=== PATIENT | female | born 1985 | race Caucasian/White ===

== ENCOUNTER → 2021-02-17 11:26 | Outpatient (BNVA) | payer OTHER, SELFPAY | PROVIDERS: Family Provider Nurse Practitioner Family; Visit Provider Nurse Practitioner Family | DX: Z20.822 Contact with and (suspected) exposure to COVID-19 (principal); J06.9 Acute upper respiratory infection, unspecified | CPT/HCPCS: 87635 ==

== ENCOUNTER → 2022-06-29 16:02 | Outpatient (BNVA) | payer SELFPAY | PROVIDERS: Family Provider Nurse Practitioner Family; Visit Provider Nurse Practitioner Psychiatric/Mental Health | DX: Z79.899 Other long term (current) drug therapy (principal); F34.0 Cyclothymic disorder; F43.12 Post-traumatic stress disorder, chronic; F17.210 Nicotine dependence, cigarettes, uncomplicated | CPT/HCPCS: 80053; 80061; 83036 ==

== ENCOUNTER 2024-09-27 12:58 | Inpatient (IN) | payer SELFPAY ==
[2024-09-27 13:40] VITALS: BP 101/62; PULSE 108; RESP 20; TEMP 38.9; O2SAT 99; BMI 25.2
[2024-09-27 13:54] LABS: Basophils % 0.2 %; Eosinophils % 0.1 %; Hematocrit 38.6 % (36-47); Lymphocytes # 1.1 10^3/uL (0.8-4.8); Lymphocytes % 7.5 %; Mean Corpuscular HGB Conc 30.3 g/dL (30-55); Mean Corpuscular Volume 82.5 fl (85-98); Mean Platelet Volume 10.5 fL (7.4-10.4); Monocytes # 0.9 10^3/uL (0.2-0.9); Neutrophils # 12.63 10^3/uL (1.8-7.7); Neutrophils % 85.8 %; Nucleated Red Blood Cells % 0 %; Platelet Count 326 10^3/cmm (157-399); Red Blood Count 4.68 10^6/uL (3.85-5.65); Red Cell Distribution Width 15.6 % (12.1-15.1); White Blood Count 14.73 10^3/uL (3.29-11.43)
--- NOTE | 2024-09-27 13:58 | ED_ITS ---
HPI - Abdominal Pain 2 General: Chief Complaint: Abdominal Pain Stated Complaint: abd pain/fever Time Seen by Provider: 09/27/24 13:58 History of Present Illness: 39-year-old female presents emergency ro om complaining of left-sided pelvic pain and a fever. She denies any discharge dysuria frequency hematuria. She denies any vaginal discharge or bleeding. She previously has had a tubal ligation. She has had symptoms off and on for weeks but much worse over the last 24 hours. Associated Symptoms: Denies chills, dysuria and fever(s) Related Data Home Medications ?Medication ?Instructions ?Recorded ?Confirmed multivitamin 1 tab PO DAILY 09/27/2409/03 Previous Rx's ?Medication ?Instructions ?Recorded carisoprodol 250 mg tablet (Soma) 250 mg PO TID PRN mu scle pain #14 09/27/24 tabs tramadol 50 mg tablet 50 mg PO Q8H PRN Abd pain #2 0 tabs 09/27/24 Allergies Allergy/AdvReac Type Severity Reaction Status Date / Time amoxicillin Allergy ALGY-Anaphy Verified 09/27/24 13:44 laxis Sulfa (Sulfonamide Allergy ALGY-Anaphy Verified 09/27/24 13:44 Antibiotics) laxis Review of Systems 2 Const: Denies: fever(s) or chills Card: Denies: chest pain Resp: Denies: dyspnea GI: Denies: abdominal pain : Denies: dysuria, urinary frequency or urinary urgency Musc: Denies: neck pain or back pain Skin/Breast: Denies: rash PFSH ED 2 PFSH: Medical History Strain of rectus abdominis muscle Chronic post-traumatic stress disorder Nicotine dependence, cigarettes, uncomplicated Cyclothymic disorder with anxious distress Social History Smoking and tobacco/nicotine status: current every day tobacco/nicotine user Quit status (tobacco/nicotine): not considering quitting Alcohol intake: current Substance/Drug Use: never Physical Exam 2 Const: COMMON NORMALS: no acute distress GENERAL APPEARANCE: cooperative and comfortable ORIENTATION/CONSCIOUSNESS: Yes awake, Yes oriented to person, Yes oriented to place and Yes oriented to time HENMT: COMMON NORMALS: normocephalic, atraumatic and hearing grossly normal bilaterally HEAD & SCALP: normocephalic and atraumatic Resp: COMMON NORMALS: normal respiratory effort, No retractions, No use of accessory muscles and clear to auscultation bilaterally AUSCULTATION: clear to auscultation bilaterally Cardio: COMMON NORMALS: regular rate, regular rhythm and No murmurs present (Cardio) RATE: regular rate RHYTHM: regular rhythm GI: COMMON NORMALS: No hepatosplenomegaly present AUSCULTATION: Yes normoactive bowel sounds PALPATION: Yes Tenderness to palpation present (GI) Details: LLQ, No Guarding due to palpation present (GI) and Yes No hepatosplenomegaly present Extremity: COMMON NORMALS: normal to inspection, capillary refill normal, no clubbing, cyanosis or edema, no calf tenderness and no pedal edema Neuro: SENSORIUM/ORIENTATION: Yes oriented to person, Yes oriented to place and Yes oriented to time Skin: COMMON NORMALS: no rashes or lesions noted GENERAL SKIN EXAM: no rashes or lesions noted Course 2 Vital Signs: Vital signs: Vital Signs Temperature 98.5 F 09/28/24 04:23 Pulse Rate 92 09/28/24 04:23 Respiratory Rate 18 09/28/24 04:23 Blood Pressure 112/64 09/28/24 04:23 Pulse Oximetry 96 09/28/24 04:23 Oxygen Delivery Me thod Room Air 09/28/24 04:23 MDM - Abdominal Pain Medical Decision Making Patient arrived with a fever. She has significant enlargement in the left ovary on CT they recommended ultrasound. Ultrasound shows poor blood flow to areas of edema with suggestive of torsion which has been going on off and on for a week and had developed severe pain in the last 12 hours. She denies any vaginal discharge. GC and Chlamydia were run. Empirically start doxycycline and metronidazole. Discussed Dr. Fall orders written he will see the patient. Differential Diagnosis Likely abdominal pain, calculus of kidney, constipation, diverticulitis, endometriosis and small bowel obstruction Medical Records I reviewed the patient's medical records. Lab Data I reviewed the patient's lab results. 09/27/24 13:33 09/27/24 13:33 Labs/Radiology: Radiology Impressions Abdomen/Pelvis CT 09/27/24 14:16 IMPRESSION: 1. Large left ovary. Ultrasound recommended. 2. Moderate free pelvic fluid. Chest X-Ray 09/27/24 14:18 Impression: Negative chest. Pelvic/Transvag US 09/27/24 15:39 IMPRESSION: Enlarged, edematous left ovary with scant to no flow seen within the edematous portions of the ovary which raises concern for ovarian torsion. THIS REPORT CONTAINS FINDINGS THAT MAY BE CRITICAL TO PATIENT CARE. The findings were verbally communicated via telephone conference with MARIO GREENBERG at 5:32 PM FERMENTING CELLARS RECEIVER on 09/27/2024. The findings were acknowledged and understood. Laboratory Results WBC 14.73 10^3/uL (3.29-11.43) H 09/27/24 13:33 RBC 4.68 10^6/uL (3.85-5.65) 09/27/24 13:33 Hgb 11.70 g/dL (11.27-16.99) 09/27/24 13:33 Hct 38.6 % (36-47) 09/27/24 13:33 MCV 82.5 fl (85-98) L 09/27/24 13:33 MCH 25.0 pg (27-33) L 09/27/24 13:33 MCHC 30.3 g/dL (30-55) 09/27/24 13:33 RDW 15.6 % (12.1-15.1) H 09/27/24 13:33 Plt Count 326 10^3/cmm (157-399) 09/27/24 13:33 MPV 10.5 fL (7.4-10.4) H 09/27/24 13:33 Neut % (Auto) 85.8 % 09/27/24 13:33 Lymph % (Auto) 7.5 % 09/27/24 13:33 [place] % (Auto) 6.0 % 09/27/24 13:33 Eos % (Auto) 0.1 % 09/27/24 13:33 Baso % (Auto) 0.2 % 09/27/24 13:33 Neut # (Auto) 12.63 10^3/uL (1.8-7.7) H 09/27/24 13:33 Lymph # (Auto) 1.1 10^3/uL (0.8-4.8) 09/27/24 13:33 [place] # (Auto) 0.9 10^3/uL (0.2-0.9) 09/27/24 13:33 Eos # (Auto) 0.0 10^3/uL (0.0-0.8) 09/27/24 13:33 Baso # (Auto) 0.0 10^3/uL (0.0-0.1) 09/27/24 13:33 Nucleated RBC % (auto) 0 % 09/27/24 13:33 Nucleated RBCs # 0.0 /100WBC 09/27/24 13:33 Sodium 135 mmol/L (136-145) L 09/27/24 13:33 Potassium 3.4 mmol/L (3.5-5.1) L 09/27/24 13:33 Chloride 101 mmol/L (98-107) 09/27/24 13:33 Carbon Dioxide 21 mmol/L (22-29) L 09/27/24 13:33 Anion Gap 16.4 (5-19) 09/27/24 13:33 BUN 6 mg/dL (6-20) 09/27/24 13:33 Creatinine 0.5 mg/dL (0.5-0.9) 09/27/24 13:33 GFR Calculation 138.1 mL/min (90-130) H 09/27/24 13:33 Glucose 117 mg/dL (65-115) H 09/27/24 13:33 Calculated Osmolality 279 mOsm/kg (285-295) L 09/27/24 13:33 Lactic Acid 0.8 mmol/L (0.5-2.2) 09/27/24 16:55 Calcium 9.2 mg/dL (8.5-10.5) 09/27/24 13:33 Total Bilirubin 0.8 mg/dL (0.15-1.2) 09/27/24 13:33 AST 24 U/L (0-32) 09/27/24 13:33 ALT 30 U/L (0-33) 09/27/24 13:33 Alkaline Phosphatase 107 U/L (35-105) H 09/27/24 13:33 Total Protein 6.8 g/dL (6.6-8.7) 09/27/24 13:33 Albumin 3.6 g/dL (3.5-5.2) 09/27/24 13:33 Globulin 3.2 g/dL (1.3-4.6) 09/27/24 13:33 Lipase 23 U/L (13-60) 09/27/24 13:33 HCG, Qual Negative (Negative) 09/27/24 13:33 Urine Color [place] (Yellow) A 09/27/24 14:19 Urine Appearance Turbid (CLEAR) A 09/27/24 14:19 Urine pH 6.5 (5-7) 09/27/24 14:19 Ur Specific [place] 1.024 (1.005-1.030) 09/27/24 14:19 Urine Protein 1+ (Negative) A 09/27/24 14:19 Urine Glucose (UA) Negative (Normal) 09/27/24 14:19 Urine Ketones 1+ (Negative) H 09/27/24 14:19 Urine Blood Negative (Negative) 09/27/24 14:19 Urine Nitrate Negative (Negative) 09/27/24 14:19 Urine Bilirubin 1+ (Negative) H 09/27/24 14:19 Urine Urobilinogen 2.0 mg/dL (Negative) H 09/27/24 14:19 Ur Leukocyte Esterase 1+ (Negative) A 09/27/24 14:19 Urine RBC 0-4 /hpf (0-2) H 09/27/24 14:19 Urine WBC 0-4 /hpf (0-5) H 09/27/24 14:19 Ur Squamous Epith Cells 0-4 /hpf (0-5) H 09/27/24 14:19 Amorphous Sediment Not Reportable 09/27/24 14:19 Urine Bacteria 3+ /hpf (NONE) H 09/27/24 14:19 Hyaline Casts 0-4 /lpf H 09/27/24 14:19 C. trachomatis (PCR) Not detected 09/27/24 14:19 Influenza A (PCR) Negative (Negative) 09/27/24 14:28 Influenza Type B (PCR) Negative (Negative) 09/27/24 14:28 N. gonorrhoeae (PCR) Not detected 09/27/24 14:19 RSV (PCR) Negative (Negative) 09/27/24 14:28 SARS-CoV-2 (PCR) Negative (Negative) 09/27/24 14:28 T. vaginalis (PCR) Not detected 09/27/24 14:19 All radiology interpretation(s) finalized by discharge Discharge Plan Discharge Patient Disposition: Admitted As Inpatient Admit Provider: Toby Fall Clinical Impression: Torsion of left ovary, Fever Condition: Stable Coding Level of Care Code ED Wheat Cleaner for Khoa Stevens
--- NOTE | 2024-09-27 14:01 | PC.PHAR ---
Patient was seen in Urgent care 09/27/24 earlier and stated she wasn't aware that they prescribed the Soma or the Tramadol , so she hadn't picked it up yet .
[2024-09-27 14:03] LABS: HCG, Serum Qual Negative (Negative)
[2024-09-27 14:13] LABS: Alanine Aminotransferase 30 U/L (0-33); Albumin Level 3.6 g/dL (3.5-5.2); Alkaline Phosphatase 107 U/L (35-105); Anion Gap 16.4 (5-19); Aspartate Amino Transferase 24 U/L (0-32); Blood Urea Nitrogen 6 mg/dL (6-20); Calcium 9.2 mg/dL (8.5-10.5); Carbon Dioxide 21 mmol/L (22-29); Chloride 101 mmol/L (98-107); Globulin 3.2 g/dL (1.3-4.6); Glomerular Filtration Rate 138.1 mL/min (90-130); Glucose 117 mg/dL (65-115); Lipase 23 U/L (13-60); Osmolality Calculated 279 mOsm/kg (285-295); Potassium 3.4 mmol/L (3.5-5.1); Sodium 135 mmol/L (136-145); Total Bilirubin 0.8 mg/dL (0.15-1.2); Total Protein 6.8 g/dL (6.6-8.7)
--- NOTE | 2024-09-27 14:16 | CTR_ITS ---
PROCEDURE INFORMATION: Exam: CT Abdomen And Pelvis Without Contrast Exam date and time: 09/27/2024 2:31 PM Age: 39 years old Clinical indication: Abdominal pain; Flank; Left; Additional info: Flank pain TECHNIQUE: Imaging protocol: Computed tomography of the abdomen and pelvis without contrast. Radiation optimization: All CT scans at this facility use at least one of these dose optimization techniques: automated exposure control; mA and/or kV adjustment per patient size (includes targeted exams where dose is matched to clinical indication); or iterative reconstruction. COMPARISON: No relevant prior studies available. RADIATION DOSE METRICS: Total DLP (mGy-cm): 402.23 FINDINGS: Liver: Normal. No mass. Gallbladder and biliary ducts: Normal. No calcified stones. No ductal dilation. Pancreas: Normal. No ductal dilation. Spleen: 14 cm splenomegaly. Adrenal glands: Normal. No mass. Kidneys and ureters: Faint nephrocalcinosis. Nonobstructing bilateral lower pole renal calculus. Stomach and bowel: Unremarkable. No obstruction. No mucosal thickening. Appendix: No evidence of appendicitis. Intraperitoneal space: Moderate volume free fluid within the pelvis. Vasculature: Unremarkable. No abdominal aortic aneurysm. Lymph nodes: Unremarkable. No enlarged lymph nodes. Urinary bladder: Unremarkable as visualized. Reproductive: 6.7 cm mass in the left adnexa probably representing a large left ovary. There is a small amount of adjacent free fluid. Ultrasound is recommended for further evaluation. Bones/joints: Unremarkable. No acute fracture. Soft tissues: Unremarkable. CT/CT kidney stone [id number] IMPRESSION: 1. Large left ovary. Ultrasound recommended. 2. Moderate free pelvic fluid.
--- NOTE | 2024-09-27 14:18 | XR_ITS ---
WS: [id number] Portable AP upright chest, 09/27/2024 Clinical Data: dyspnea/cough Comparison: None. Findings: No nodules, masses or effusions are seen. The heart is normal. The pulmonary vascularity is not increased. No pneumonia or pneumothorax is seen. XR/XR chest 1V portable [id number] Impression: Negative chest.
[2024-09-27 14:24] LABS: Slide Review Slide Review Perform
[2024-09-27 14:35] LABS: Bilirubin Urine 1+ (Negative); Blood Urine Negative (Negative); Glucose Urine UA Negative (Normal); Ketones Urine 1+ (Negative); Leukocyte Esterase Urine 1+ (Negative); Nitrate Urine Negative (Negative); Protein Urine 1+ (Negative); Specific Gravity, Urine 1.024 (1.005-1.030); Urine Appearance Turbid (CLEAR); pH Urine 6.5 (5-7)
--- NOTE | 2024-09-27 14:42 | ECG_ITS ---
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 Measurements Intervals [place] Rate: 95 P: 18 MI: 84 QRS: -46 QRSD: 120 T: 123 QT: 363 QTc: 457 Interpretive Statements SINUS RHYTHM WITH SHORT MI INTERVAL VENTRICULAR PREEXCITATION / WPW Compared to ECG 11/01/2015 04:58:13 No significant changes Electronically Signed On 09-30-2024 08:02:57 IRRIGATION DISTRICT MANAGER by Cuauhtemoc Zepeda M.D. [email or web address]
[2024-09-27 14:48] LABS: Add Urine Culture? Yes; Add Urine Microscopic? YES; Bacteria Urine 3+ /hpf; Hyaline Casts Urine 0-4 /lpf; RBC Urine 0-4 /hpf (0-2); Squamous Epithelial Cell Urine 0-4 /hpf (0-5); UA Manual Slide Review YES; UA Slide Review UA Slide Review Perf; Urine Color Orange (Yellow); WBC Urine 0-4 /hpf (0-5)
[2024-09-27 15:14] LABS: Influenza A NEGATIVE (Negative); Influenza B NEGATIVE (Negative); Respiratory Syncytial Virus Ce NEGATIVE (Negative); SARS-CoV-2 PCR NEGATIVE (Negative)
--- NOTE | 2024-09-27 15:39 | USR_ITS ---
PROCEDURE INFORMATION: Exam: US Pelvis, Complete, Non-Obstetric Exam date and time: 09/27/2024 4:16 PM Age: 39 years old Clinical indication: Pelvic pain; Additional info: L ovarian mass TECHNIQUE: Imaging protocol: Transabdominal pelvic nonobstetric ultrasound. Complete exam. Real time ultrasound with image documentation. COMPARISON: CT kidney stone [id number] 09/27/2024 2:31 PM FINDINGS: Uterus: Uterus is normal. Endometrial stripe measures 8 mm in thickness, within normal limits. Right ovary/adnexa: Ovary is normal. No mass. Ovarian follicle noted measuring 2 cm in size. Normal blood flow. Left ovary/adnexa: Left ovary is enlarged appears edematous with heterogeneous hypoechogenicity. The ovary measures 7.4 x 3.5 x 5.6 cm with an estimated ovarian volume of 75 cc. While some blood flow is detected within ovary, there appears to be scant or no flow seen within the hypoechogenic/edematous regions. Some smaller follicles are present within the left ovary measuring up to 2 cm in size, but no ovarian mass that would explain the ovarian enlargement. Intraperitoneal space: Small volume free fluid is noted within the pelvis. Urinary bladder: Normal. US/US pelvis lmt w transvag IMPRESSION: Enlarged, edematous left ovary with scant to no flow seen within the edematous portions of the ovary which raises concern for ovarian torsion. THIS REPORT CONTAINS FINDINGS THAT MAY BE CRITICAL TO PATIENT CARE. The findings were verbally communicated via telephone conference with SOLA GREENBERG at 5:32 PM ENTHONE SOLDER STRIPPER on 09/27/2024. The findings were acknowledged and understood.
[2024-09-27] MEDS: acetaminophen 325 mg Tablet 650 MG PO (16:58)
[2024-09-27 17:00] VITALS: TEMP 37.9
[2024-09-27 17:39] LABS: Lactic Sepsis W/Reflex 0.8 mmol/L (0.5-2.2)
[2024-09-27] MEDS: doxycycline 100 MG in sodium chloride 0.9% (plus) 100 ML IV (18:06)
[2024-09-27] MEDS: metroNIDAZOLE IV 500 MG/100 ML PREMIX 100 MG IV (18:07)
[2024-09-27] MEDS: morphine 4 mg/mL SDV 1 mL IVP (18:37)
[2024-09-27] MEDS: ketorolac 30 mg/mL INJ IVP (18:37)
[2024-09-27 18:42] VITALS: BP 112/61; PULSE 96; RESP 18; O2SAT 97
[2024-09-27 20:02] LABS: Trichomonas vaginalis (PCR) NOT DETECTED
[2024-09-27 20:07] VITALS: BP 104/50; PULSE 92; RESP 16; TEMP 36.9; O2SAT 97; BMI 25.1
[2024-09-27 20:26] LABS: Chlamydia Trachomatis NOT DETECTED; Neisseria Gonorrhea NOT DETECTED
[2024-09-27 20:44] VITALS: BP 104/50; PULSE 92; RESP 18; O2SAT 97
[2024-09-27] MEDS: D5-NS 0.45% + KCL 20 mEq 20 MEQ/1,000 ML BAG 125 MEQ IV (21:08)
[2024-09-27 23:58] VITALS: BP 96/57; PULSE 79; RESP 18; TEMP 36.7; O2SAT 98
[2024-09-28] VITALS (20 sets, daily range): BP systolic 86–114; BP diastolic 39–66; PULSE 77–100; RESP 15–24; TEMP 36.6–38.6; O2SAT 91–98
[2024-09-28] MEDS: morphine 4 mg/mL SDV 1 mL IVP ×3 (02:49→11:23)
[2024-09-28] MEDS: D5-NS 0.45% + KCL 20 mEq 20 MEQ/1,000 ML BAG 125 MEQ IV ×2 (04:58→11:26)
--- NOTE | 2024-09-28 10:52 | US_ITS ---
WS: [id number] US transvaginal [id number] HISTORY: examine ovaries for ovarian torsion COMPARISON: Ultrasound 09/27/2024, CT 09/27/2024 Uterus: 7.7 cm x 4.8 cm x 5.3 cm. Uterus is slightly retroflexed. Uterus is not as well visualized today due to its position compared to the study on 09/27/2024. Endometrium: 1.0 cm. Normal. Right ovary: 4.2 cm x 2.4 cm x 2.8 cm. Normal size and vascularity, no cystic or solid masses. Left ovary: 7.2 cm x 5.3 cm x 7.4 cm. Normal size and vascularity, no cystic or solid masses. LEFT ovary is difficult to see on today's ultrasound due to its high position within the LEFT pelvis. Ovary was better visualized on transabdominal imaging on the prior study. The ovary continues to be enlarged and edematous with cystic masses. Ovarian volume is 148 mL. There is systolic and diastolic velocity noted within the ovary but this is within the peripheral aspect of the ovary. Only small portion of the ovary has vascularity. Slight delayed uptake of the arterial flow. No reversal of flow. No free fluid in the cul-de-sac. US/US transvaginal [id number] IMPRESSION: 1. Significantly enlarged LEFT ovary with edema and follicles. LEFT ovary is s lightly elevated from the LEFT adnexa. Vascularity is only identified in a smal l portion of the ovary. Findings remain highly suspicious for at least a partia l ovarian torsion. 2. No free fluid in the cul-de-sac. 3. Notified Toby Fall MD at 09/28/2024 12:51 PM.
[2024-09-28] MEDS: metroNIDAZOLE IV 500 MG/100 ML PREMIX 100 MG IV (11:25)
[2024-09-28] MEDS: doxycycline 100 MG in sodium chloride 0.9% (plus) 100 ML IV (11:25)
--- NOTE | 2024-09-28 13:06 | W.PM.OPSFHP ---
Same Day Surgery H&P Indication for Procedure/HPI DATE OF PROCEDURE: September 28, 2024 CHIEF COMPLAINT/INDICATIONFOR SURGICAL PROCEDURE: Pelvic pain PREOP DIAGNOSIS: left ovarian torsion PLANNED PROCEDURE: Diagnostic laparoscopy Untoward ovary Possible oophorectomy 39-year-old female came to the emergency room with pelvic pain and fever. During the ER evaluation ultrasound was performed showing a large left ovary with decreased blood flow. Admitted for observation and antibiotics therapy and repeat ultrasound continue to show enlarged adenomatous ovary with diminished blood flow. Medications/Allergies* Home Medications ?Medication ?Instructions ?Recorded ?Confirmed ?Type multivitamin 1 tab PO DAILY 09/27/24 09/27/24 History Allergies/Adverse Reactions Allergy/AdvReac Type Severity Reaction Status Date / Time amoxicillin Allergy ALGY-Anaphy Verified 09/27/24 13:44 laxis Sulfa (Sulfonamide Allergy ALGY-Anaphy Verified 09/27/24 13:44 Antibiotics) laxis Current Medications: Generic Name Dose Route Start Last Admin Trade Name Freq PRN Reason Stop Dose Admin Potassium Chloride/Dextrose/Sod Cl 20 meq in 1,000 mls @ 125 mls/hr 09/27/24 19:58 09/28/24 12:18 D5-Ns 0.45% + Kcl 20 Meq IV 125 mls/hr .Q8H WALKER Infusion Doxycycline Hyclate 100 mg/ 100 mls @ 100 mls/hr 09/28/24 12:00 09/28/24 12:18 Sodium Chloride IV 10 mls/hr Q12H WALKER Infusion Protocol Metronidazole 500 mg in 100 mls @ 100 mls/hr 09/28/24 12:00 09/28/24 12:18 Flagyl Iv IV 100 mls/hr Q8H WALKER Infusion Protocol Morphine Sulfate 4 mg 09/27/24 19:58 09/28/24 11:23 Morphine 4 Mg/Ml Sdv 1 Ml IVP 4 mg Q4H PRN Administration SEVERE PAIN Pertinent History/Comorbid Conditions* Medical History (Updated 09/28/24 @ 06:44 by Mario Thakur DO) Strain of rectus abdominis muscle Chronic post-traumatic stress disorder Nicotine dependence, cigarettes, uncomplicated Cyclothymic disorder with anxious distress Social History Smoking and tobacco/nicotine status: current every day tobacco/nicotine user Quit status (tobacco/nicotine): not considering quitting Alcohol intake: current Substance/Drug Use: never Pertinent Exam Findings alert, oriented x 3, regular rate & rhythm and procedure specific exam findings (Left lower abdominal tenderness) Recommendations Surgery/Procedure today (Diagnostic laparoscopy, ovarian untorsion) Coding Level of Care Code Acute Code for Chg Fwd
[2024-09-28] MEDS: sodium chloride 0.9% 1,000 ML 30 ML IV (13:35)
[2024-09-28] MEDS: scopolamine 1 mg PATCH 1 PATCH TRANSDERMA (13:35)
--- NOTE | 2024-09-28 14:02 | P.ANESASSM_ITS ---
Pre-Anesthetic Assessment Height/Weight: Height 1.65 m Weight 68.492 kg Temp Pulse Resp BP Pulse Ox O2 Del Method 101.5 F H 100 18 114/63 96 Room Air 09/28/24 13:28 09/28/24 13:28 09/28/24 13:28 09/28/24 13:28 09/28/24 13:28 09/28/24 13:28 Preop Diagnosis: left ovarian torsion Operation Date: 09/28/24 13:30 Proposed Procedures p Laparoscopic Salpingo Oophorectomy(Not Applicable) - Toby Fall MD Familial anesthetic complications: none Was Beta Veronica taken within 24 hours: N/A Was Clonidine taken within 24 hours: N/A Last intake: Intake Last Liquid Date 09/27/24 Last Liquid Time 20:18 Last Solid Date 09/24/24 Last Solid Time 20:00 Social Tobacco Meth use 7 days ago Exam alert, oriented x 3, clear to auscultation bilaterally and regular rate & rhythm Airway Mallampati: Class II Dentition: chipped Comments: Comments: poor dentition, multiple missing upper and lower CV/HEM EKG shows WPW, Q waves in II, III, and AVF, history of meth abuse does not see cardiology, >4mets, last used 7 days ago. None reported Hepatic None reported GI None reported N/V attributed to current diagnosis. Metabolic None reported Musc/skel None reported Neuropsych Anxiety, Bipolar and Depression Anesthetic Plan ASA status: 3 Anesthesia: General Risk of > 500 ml blood loss (7ml/kg in children): No Medications/Allergies Home Medications ?Medication ?Instructions ?Recorded ?Confirmed ?Last Taken ?Type carisoprodol 250 mg tablet (Soma) 250 mg PO TID PRN mu scle pain #14 09/27/24 09/27/24 Unknown Rx tabs multivitamin 1 tab PO DAILY 09/27/24 02/2 01/2409/23/24 History tramadol 50 mg tablet 50 mg PO Q8H PRN Abd pain #2 0 tabs 09/27/24 09/27/24 Unknown Rx Allergies Allergy/AdvReac Type Severity Reaction Status Date / Time amoxicillin Allergy ALGY-Anaphy Verified 09/27/24 13:44 laxis Sulfa (Sulfonamide Allergy ALGY-Anaphy Verified 09/27/24 13:44 Antibiotics) laxis Current Medications Generic Name Dose Route Start Last Admin Trade Name Freq PRN Reason Stop Dose Admin Potassium Chloride/Dextrose/Sod Cl 20 meq in 1,000 mls @ 125 mls/hr 09/27/24 19:58 09/28/24 12:18 D5-Ns 0.45% + Kcl 20 Meq IV 125 mls/hr .Q8H WALKER Infusion Doxycycline Hyclate 100 mg/ 100 mls @ 100 mls/hr 09/28/24 12:00 09/28/24 12:18 Sodium Chloride IV 10 mls/hr Q12H WALKER Infusion Protocol Metronidazole 500 mg in 100 mls @ 100 mls/hr 09/28/24 12:00 09/28/24 13:10 Flagyl Iv IV Infused Q8H WALKER Infusion Protocol Sodium Chloride 1,000 mls @ 30 mls/hr 09/28/24 13:30 09/28/24 13:35 Sodium Chloride 0.9% IV 09/29/24 13:29 30 mls/hr .Q24H WALKER Administration Morphine Sulfate 4 mg 09/27/24 19:58 09/28/24 11:23 Morphine 4 Mg/Ml Sdv 1 Ml IVP 4 mg Q4H PRN Administration SEVERE PAIN PFSH Anesthesia Medical History Strain of rectus abdominis muscle Chronic post-traumatic stress disorder Nicotine dependence, cigarettes, uncomplicated Cyclothymic disorder with anxious distress Social History Smoking and tobacco/nicotine status: current every day tobacco/nicotine user Quit status (tobacco/nicotine): not considering quitting Alcohol intake: current Substance/Drug Use: never Data Anesthesia 09/27/24 13:33 09/27/24 13:33 Short CBC 09/27/24 Range/Units 13:33 WBC 14.73 H (3.29-11.43) 10^3/uL Hgb 11.70 (11.27-16.99) g/dL Hct 38.6 (36-47) % MCV 82.5 L (85-98) fl Plt Count 326 (157-399) 10^3/cmm Neut % (Auto) 85.8 % Neut # (Auto) 12.63 H (1.8-7.7) 10^3/uL BMP 09/27/24 13:33 Sodium 135 L Potassium 3.4 L Chloride 101 Carbon Dioxide 21 L BUN 6 Creatinine 0.5 Glucose 117 H Calcium 9.2 Liver Function 09/27/24 Range/Units 13:33 Total Bilirubin 0.8 (0.15-1.2) mg/dL AST 24 (0-32) U/L ALT 30 (0-33) U/L Alkaline Phosphatase 107 H (35-105) U/L Albumin 3.6 (3.5-5.2) g/dL Urine 09/27/24 Range/Units 14:19 Urine Color [place] A (Yellow) Urine Appearance Turbid A (CLEAR) Urine pH 6.5 (5-7) Ur Specific [place] 1.024 (1.005-1.030) Urine Protein 1+ A (Negative) Urine Glucose (UA) Negative (Normal) Urine Ketones 1+ H (Negative) Urine Nitrate Negative (Negative) Urine Bilirubin 1+ H (Negative) Ur Leukocyte Esterase 1+ A (Negative) Urine RBC 0-4 H (0-2) /hpf Urine WBC 0-4 H (0-5) /hpf COVID Results 09/27/24 14:28 SARS-CoV-2 (PCR) Negative Microbiology 09/27/24 14:19 Urine Culture - Preliminary Urine,Clean Catch Gram Negative Rods 09/27/24 16:58 Blood Culture - Preliminary Blood SPECIMEN COLLECTED 09/27/24 16:55 Blood Culture - Preliminary Blood SPECIMEN COLLECTED Cardiac Studies: 2 No Data to Display
[2024-09-28] MEDS: BUPivacaine 0.5% INJ 10 mL INJECTION (14:30)
--- NOTE | 2024-09-28 14:42 | P.OP_ITS ---
Operative Report Date of procedure: September 28, 2024 Pre-op diagnosis: Pelvic pain Left ovarian torsion Post-op diagnosis: Same as above Extensive pelvic adhesions Procedure done: Diagnostic laparoscopy Surgeon: Toby Fall MD Estimated blood loss (mL): 5 Complications: none Findings: extensive lower anterior abdominal wall adhesions, in volving the uterus, omemtun, left adnexa. Procedure: After informed consent, the patient was taken to the operating room where general anesthesia was administered. The patient was examined under anesthesia and found to have a normal uterus with normal adnexa. She was placed in the dorsal lithotomy position and prepped and draped in sterile fashion. Pre- Procedure Time-Out verifying the correct patient identity, correct procedure verified with consent, correct site and side, correct patient position, availability of correct implants and any special equipment or requirements was performed and acknowledge by the OR team. A weighted speculum was placed in the vagina, and the anterior lip of cervix was grasped with the single toothed tenaculum. A uterine manipulator was advanced into the endocervical. Tenaculum was removed after uterine manipulator was secured. The speculum was removed from the vagina. An intraumbilical incision was made with a scalpel. While tenting up on the abdomen, a Verres needle with sleeve was admitted into the intra-abdominal cavity. A saline drop test was performed and noted to be within normal limits. Pneumoperitoneum was attained with 4 liters of carbon dioxide. The Verres needle was removed. A 5 mm trocar and sleeve were admitted into the abdomen and laparoscopic confirmation of location was achieved, A second incision was not inserted due to extensive adhesion to anterior abdopminal wall. A survey revealed extensive anterior abdominal wall adhesions involving the uterus, omentum and large intestine. The patient will be counseled regarding findings and recommended exploratory laparotomy with possible hysterectomy. Right ovary was normal. Carbon dioxide was allowed to escape from the abdomen. The instruments were removed, and skin cover with a bandage. The instruments were removed from the vagina, and excellent hemostasis was noted. The patient tolerated the procedure well, and sponge, lap and needle count were correct times two. The patient taken to the recovery room in good condition.
--- NOTE | 2024-09-28 15:25 | ANE.PACU2 ---
Inpatient post-anesthesia follow up: Airway intact: Yes Vital signs: Temperature 97.9 F Pulse Rate 88 Respiratory Rate 15 Blood Pressure 86/52 Pulse Oximetry 96 Oxygen Delivery Me thod Room Air Oxygen Flow Rate 8 Fraction of Inspir ed Oxygen Hydration adequate: Yes Nausea and vomiting: No Pain level: 1 Mental status: Baseline
[2024-09-28 15:31] LABS: OR HCG Qualitative Urine Negative (Negative)
[2024-09-28] MEDS: HYDROcodone-acetaminophen 5-325 mg Tablet PO (15:50)
[2024-09-28] MEDS: ketorolac 30 mg/mL INJ IVP ×2 (15:50→21:38)
[2024-09-28] MEDS: dextrose 5%-lactated ringers 1,000 ML 125 ML IV ×2 (15:51→23:42)
[2024-09-28 18:01] LABS: Basophils % 0.2 %; Eosinophils % 0.2 %; Hematocrit 31.8 % (36-47); Lymphocytes # 0.8 10^3/uL (0.8-4.8); Lymphocytes % 6.1 %; Mean Corpuscular HGB Conc 31.1 g/dL (30-55); Mean Corpuscular Hemoglobin 25.2 pg (27-33); Mean Corpuscular Volume 80.9 fl (85-98); Mean Platelet Volume 10.7 fL (7.4-10.4); Monocytes # 0.2 10^3/uL (0.2-0.9); Monocytes % 1.9 %; Neutrophils % 90.5 %; Nucleated Red Blood Cells % 0 %; Platelet Count 268 10^3/cmm (157-399); Red Blood Count 3.93 10^6/uL (3.85-5.65); Red Cell Distribution Width 15.4 % (12.1-15.1)
[2024-09-28 18:25] LABS: Alanine Aminotransferase 24 U/L (0-33); Albumin Level 2.9 g/dL (3.5-5.2); Alkaline Phosphatase 93 U/L (35-105); Blood Urea Nitrogen 8 mg/dL (6-20); Calcium 8.5 mg/dL (8.5-10.5); Carbon Dioxide 24 mmol/L (22-29); Chloride 105 mmol/L (98-107); Creatinine Clr Calc Pharmacy 148.3456; Globulin 2.8 g/dL (1.3-4.6); Glomerular Filtration Rate 138.1 mL/min (90-130); Glucose 207 mg/dL (65-115); Osmolality Calculated 288 mOsm/kg (285-295); Sodium 137 mmol/L (136-145); Total Bilirubin 0.5 mg/dL (0.15-1.2); Total Protein 5.7 g/dL (6.6-8.7)
[2024-09-28 18:28] LABS: Anion Gap 12.3 (5-19); Aspartate Amino Transferase 29 U/L (0-32); Potassium 4.3 mmol/L (3.5-5.1)
[2024-09-28 23:56] LABS: Bilirubin Urine Negative (Negative); Blood Urine Negative (Negative); Glucose Urine UA Negative (Normal); Ketones Urine Trace (Negative); Leukocyte Esterase Urine 1+ (Negative); Nitrate Urine Negative (Negative); Protein Urine 1+ (Negative); Specific Gravity, Urine 1.021 (1.005-1.030); Urine Appearance Clear (CLEAR); Urine Color Dark Yellow (Yellow); pH Urine 6.5 (5-7)
[2024-09-29] VITALS: BP 94/53; PULSE 66; RESP 16; TEMP 36.4; O2SAT 97
[2024-09-29 00:16] LABS: Add Urine Microscopic? YES; RBC Urine 0-4 /hpf (0-2); Squamous Epithelial Cell Urine 15-25 /hpf (0-5)
[2024-09-29 04:00] VITALS: BP 99/53; PULSE 65; RESP 14; TEMP 36.6; O2SAT 96
[2024-09-29] MEDS: ketorolac 30 mg/mL INJ IVP ×2 (04:00→10:09)
[2024-09-29 06:00] VITALS: BMI 26.8
[2024-09-29 08:26] VITALS: BP 92/58; PULSE 66; RESP 16; TEMP 36.3; O2SAT 93
[2024-09-29] MEDS: multivitamin therapeutic Tablet 1 TAB PO (10:09)
[2024-09-29] MEDS: dextrose 5%-lactated ringers 1,000 ML 125 ML IV (10:09)
[2024-09-29] MEDS: docusate sodium 100 mg Capsule PO (10:09)
[2024-09-29] MEDS: HYDROcodone-acetaminophen 5-325 mg Tablet PO (10:09)
[2024-09-29 11:35] LABS: Hematocrit 31.6 % (36-47); Mean Corpuscular Hemoglobin 25.5 pg (27-33); Mean Corpuscular Volume 82.3 fl (85-98); Mean Platelet Volume 10.6 fL (7.4-10.4); Platelet Count 377 10^3/cmm (157-399); Red Blood Count 3.84 10^6/uL (3.85-5.65); Red Cell Distribution Width 15.4 % (12.1-15.1); White Blood Count 19.57 10^3/uL (3.29-11.43)
[2024-09-29 12:02] VITALS: BP 100/58; PULSE 87; RESP 16; TEMP 36.4; O2SAT 99
--- NOTE | 2024-09-29 12:54 | P.HP_ITS ---
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 Initial CT scan and ultrasound show a left ovarian mass with decreased blood flow subjective of possible ovarian torsion. Review of Systems 2 Const: Denies: fever(s) or chills Card: Denies: chest pain Resp: Denies: dyspnea GI: Reports: abdominal pain : Reports: pelvic pain; Denies: dysuria, urinary frequency, urinary urgency or vaginal discharge Musc: Denies: neck pain or back pain Skin/Breast: Denies: rash Medications/Allergies Home Medications ?Medication ?Instructions ?Recorded ?Confirmed ?Last Taken ?Type carisoprodol 250 mg tablet (Soma) 250 mg PO TID PRN mu scle pain #14 09/27/24 09/27/24 Unknown Rx tabs multivitamin 1 tab PO DAILY 09/27/2409/0309/23/24 History tramadol 50 mg tablet 50 mg PO Q8H PRN Abd pain #2 0 tabs 09/27/24 09/27/24 Unknown Rx Allergies Allergy/AdvReac Type Severity Reaction Status Date / Time amoxicillin Allergy ALGY-Anaphy Verified 09/27/24 13:44 laxis Sulfa (Sulfonamide Allergy ALGY-Anaphy Verified 09/27/24 13:44 Antibiotics) laxis 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: Medical History Strain of rectus abdominis muscle Chronic post-traumatic stress disorder Nicotine dependence, cigarettes, uncomplicated Cyclothymic disorder with anxious distress Social History Smoking and tobacco/nicotine status: current every day tobacco/nicotine user Quit status (tobacco/nicotine): not considering quitting Alcohol intake: current Substance/Drug Use: never Vitals/I&O/Wt Last Vital Signs Temp 97.6 F 09/29/24 12:02 Pulse 87 09/29/24 12:02 Resp 16 09/29/24 12:02 BP 100/58 09/29/24 12:02 Pulse Ox 99 09/29/24 12:02 O2 Del Method Room Air 09/29/24 12:02 O2 Flow Rate 8 09/28/24 14:53 09/28/24 09/29/24 09/29/24 22:59 06:59 14:59 Intake Total 589 / 0077.496 8675 / 2536.499 1000 / 1000 Output Total 450 / 655 Balance 589 / 1331.499 550 / 2415.622 9669 / 1000 Weight last 48 hrs Weight 73.028 kg Weight 68.492 kg Weight 68.583 kg Weight 68.946 kg Physical Exam 2 Const: COMMON NORMALS: no acute distress, average body habitus and patient oriented x3 GENERAL APPEARANCE: cooperative and well kempt HENMT: COMMON NORMALS: normocephalic and atraumatic HEAD & SCALP: n ormocephalic and atraumatic Neck/C-Spine: COMMON NORMALS: full ROM Chest: COMMONS NORMALS: normal inspection of the chest Resp: COMMON NORMALS: normal respiratory effort Cardio: COMMON NORMALS: regular rate and regular rhythm RATE: regular rate RHYTHM: regular rhythm GI: INSPECTION: Yes normal to inspection : EXTERNAL FEMALE EXAM: Yes normal appearance of the urethra SPECULUM EXAM - VAGINA: No lesion and No vaginal bleeding SPECULUM EXAM - CERVIX: Yes Patulous cervix present and Yes Cervical os closed BIMANUAL EXAM - VAGINA & UTERUS: Yes cervical motion tenderness, No uterine mobility normal, Yes Uterus abnormal and Yes Uterine tenderness BIMANUAL EXAM - ADNEXA, OTHER: No mobile, Yes tender bilaterally and Yes Adnexal mass present on the left Neuro: COMMON NORMALS: patient oriented x3 Psych: APPEARANCE: Yes well kempt Urinary Catheter Management: Marquez: Cath Placed During This Visit: yes Reason for Continuing Indwelling Catheter: Not indwelling catheter Urinary Catheter Date of Insertion: 09/28/24 Urinary Catheter Time of Insertion: 14:15 Data 09/29/24 11:22 09/28/24 17:41 Other Labs: Laboratory Tests 09/27/24 09/27/24 09/28/24 13:33 14:19 17:41 WBC 14.73 H 12.70 H Hgb 11.70 9.90 L Urine HCG, Qual Negative C. trachomatis (PCR) Not detected N. gonorrhoeae (PCR) Not detected T. vaginalis (PCR) Not detected 09/29/24 11:22 WBC 19.57 H Hgb 9.80 L Urine HCG, Qual C. trachomatis (PCR) N. gonorrhoeae (PCR) T. vaginalis (PCR) Micro: Microbiology 09/27/24 16:58 Blood Culture - Preliminary Blood NEGATIVE TO DATE 09/27/24 16:55 Blood Culture - Preliminary Blood NEGATIVE TO DATE 09/27/24 14:19 Urine Culture - Preliminary Urine,Clean Catch Gram Negative Rods Other Imaging: Radiologist's impression: [address] [place] [address] Ultrasound Report Signed Patient: Camille Hernandes I Unit #: [id number] : 1985 Age/Sex: 39 / F ADM Date: 09/27/24 Loc: [facility] Room/Bed: [facility] Attending Dr: Toby Fall MD Ordering Provider/Ordering MD: Toby Fall MD Date of Service: 09/28/24 Procedure(s): US transvaginal 95691 Accession Number(s): [id number] Report Number: [id number] WS: [id number] US transvaginal [id number] HISTORY: examine ovaries for ovarian torsion COMPARISON: Ultrasound 09/27/2024, CT 09/27/2024 Uterus: 7.7 cm x 4.8 cm x 5.3 cm. Uterus is slightly retroflexed. Uterus is not as well visualized today due to its position compared to the study on 09/27/2024. Endometrium: 1.0 cm. Normal. Right ovary: 4.2 cm x 2.4 cm x 2.8 cm. Normal size and vascularity, no cystic or solid masses. Left ovary: 7.2 cm x 5.3 cm x 7.4 cm. Normal size and vascularity, no cystic or solid masses. LEFT ovary is difficult to see on today's ultrasound due to its high position within the LEFT pelvis. Ovary was better visualized on transabdominal imaging on the prior study. The ovary continues to be enlarged and edematous with cystic masses. Ovarian volume is 148 mL. There is systolic and diastolic velocity noted within the ovary but this is within the peripheral aspect of the ovary. Only small portion of the ovary has vascularity. Slight delayed uptake of the arterial flow. No reversal of flow. No free fluid in the cul-de-sac. US/US transvaginal [id number] IMPRESSION: 1. Significantly enlarged LEFT ovary with edema and follicles. LEFT ovary is slightly elevated from the LEFT adnexa. Vascularity is only identified in a small portion of the ovary. Findings remain highly suspicious for at least a partial ovarian torsion. 2. No free fluid in the cul-de-sac. 3. Notified Toby Fall MD at 09/28/2024 12:51 PM. Dictated By: Yadi Banks DO Results Labs OB ([facility]): 2 Blood Type A Positive 09/28/24 Antibody Screen Negative 09/28/24 Hct 31.6 % (36-47) L 09/29/24 Hgb ▪ 9.80 g/dL (11.27-16.99) L 09/29/24 Rho(D) Type Rh positive 09/28/24 Plt Count 377 10^3/cmm (157-399) 09/29/24 HCG, Qual Negative (Negative) 09/27/24 Micro Urine Specimen 09/27/24 A&P Assessment and plan (1) Left tubo-ovarian mass: 39-year-old female G5, P4, with a history of 4 deliveries and tubal ligation, came to the emergency room with acute abdominal pain, CT scan on admission ultrasound showed left ovarian mass with decreased blood flow suggestive of possible left ovarian torsion. Patient was admitted for a diagnostic laparoscopy. Doing laparoscopy multiple dense adhesions in the pelvis were noted. Past surgical history significant for 4 delivery of which 1 was complicated by a bladder laceration. Patient referred that she she had a mesh placed after that complication. Due to the extensive adhesions involving bowel, bladder, uterus and omentum, the patient was counseled recommendation for transfer to a higher level of care for possible surgery. Case was consulted with transfer center at [facility], Dr. Callahan accepted the patient. (2) Pelvic pain: Plan Transfer to [facility]. PDMP PDMP Reviewed: Not Reviewed Attestations 2 Medical Necessity Statement*: My professional opinion per admitting diagnosis. Coding Level of Care Code Acute Code for Chg Fwd Diagnoses Left tubo-ovarian mass N83.8 Pelvic pain R10.2
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
== END 2024-09-29 16:15 | disposition short-term general hospital (02) | DRG 750 ==
LOC: ER 13:59 → ER IP 18:03 → MEDSURG 20:01
PROVIDERS: Emergency Medicine; Admitting Provider Obstetrics & Gynecology; Emergency Provider Family Medicine; Visit Provider Obstetrics & Gynecology
PROC: 0WJH4ZZ Inspection of Retroperitoneum, Percutaneous Endoscopic Approach (ICD-10-PCS; CPT 58661; principal; 2024-09-28 13:30)
DX: N83.512 Torsion of left ovary and ovarian pedicle (principal); F43.12 Post-traumatic stress disorder, chronic; F17.210 Nicotine dependence, cigarettes, uncomplicated; F34.0 Cyclothymic disorder; F41.9 Anxiety disorder, unspecified; N99.4 Postprocedural pelvic peritoneal adhesions
CPT/HCPCS: 36415; 71045; 74176; 76830; 76857; 80053; 81001; 81025; 83605; 83690; 84703; 85025; 85027; 86850; 86900; 87040; 87077; 87086; 87186; 87491; 87591; 87637; 87661; 93005; G0378; J0131; J1885; J2250; J2270; J2704; J3010; J3490; J7030; J7121

== ENCOUNTER 2024-10-08 11:26 | Emergency (ER) | payer SELFPAY ==
[2024-10-08 11:30] VITALS: BP 125/82; PULSE 89; RESP 16; TEMP 37; O2SAT 98; BMI 25.9
[2024-10-08 11:53] VITALS: BP 103/71; PULSE 74; RESP 18; O2SAT 99
[2024-10-08 12:05] VITALS: BP 103/71; PULSE 75; RESP 18; O2SAT 100
[2024-10-08 12:30] LABS: Basophils % 0.2 %; Eosinophils % 0.2 %; Hematocrit 33.9 % (36-47); Lymphocytes # 1.8 10^3/uL (0.8-4.8); Lymphocytes % 21.7 %; Mean Corpuscular HGB Conc 29.5 g/dL (30-55); Mean Corpuscular Hemoglobin 24.4 pg (27-33); Mean Corpuscular Volume 82.7 fl (85-98); Monocytes # 0.6 10^3/uL (0.2-0.9); Monocytes % 6.8 %; Neutrophils % 70.9 %; Nucleated Red Blood Cells % 0 %; Platelet Count 373 10^3/cmm (157-399); Red Cell Distribution Width 15.9 % (12.1-15.1); White Blood Count 8.06 10^3/uL (3.29-11.43)
[2024-10-08 12:36] LABS: HCG Qualitative Urine. Negative (Negative)
[2024-10-08 12:43] LABS: Bilirubin Urine 2+ (Negative); Blood Urine 3+ (Negative); Glucose Urine UA Negative (Normal); Ketones Urine Negative (Negative); Leukocyte Esterase Urine 2+ (Negative); Nitrate Urine Positive (Negative); Protein Urine 3+ (Negative); Urine Appearance Turbid (CLEAR); Urobilinogen Urine 0.2 mg/dL (Negative)
[2024-10-08 12:46] LABS: Anion Gap 14.3 (5-19); Blood Urea Nitrogen 7 mg/dL (6-20); Carbon Dioxide 26 mmol/L (22-29); Chloride 103 mmol/L (98-107); Creatinine Clr Calc Pharmacy 145.7244; Glomerular Filtration Rate 138.1 mL/min (90-130); Potassium 4.3 mmol/L (3.5-5.1); Sodium 139 mmol/L (136-145)
[2024-10-08 12:47] LABS: Alanine Aminotransferase 17 U/L (0-33); Albumin Level 3.4 g/dL (3.5-5.2); Alkaline Phosphatase 82 U/L (35-105); Aspartate Amino Transferase 21 U/L (0-32); Calcium 9.2 mg/dL (8.5-10.5); Globulin 3.6 g/dL (1.3-4.6); Glucose 110 mg/dL (65-115); Osmolality Calculated 287 mOsm/kg (285-295); Total Bilirubin 0.2 mg/dL (0.15-1.2)
[2024-10-08 12:48] LABS: Add Urine Microscopic? YES; Bacteria Urine 4+ /hpf; Hyaline Casts Urine 17.77 /lpf; RBC Urine >100 /hpf (0-2); Squamous Epithelial Cell Urine 21-50 /hpf (0-5)
[2024-10-08 12:56] LABS: Specific Gravity, Urine 1.042 (1.005-1.030); UA Slide Review UA Slide Review Perf; Urine Color Red (Yellow)
[2024-10-08 13:05] VITALS: BP 103/71; O2SAT 100
[2024-10-08 14:03] VITALS: BP 103/71; PULSE 75; RESP 16; O2SAT 98
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
== END 2024-10-08 14:13 | disposition home or self-care (01) ==
PROVIDERS: Emergency Provider Emergency Medicine
DX: N93.9 Abnormal uterine and vaginal bleeding, unspecified (principal); Z72.0 Tobacco use
CPT/HCPCS: 36415; 80053; 81001; 81025; 85025; 99283

== ENCOUNTER 2025-03-01 16:05 | Inpatient (IN) | payer OTHER, BC, MEDICAID, SELFPAY ==
[2025-03-01 16:11] VITALS: BP 156/92; PULSE 77; RESP 20; TEMP 37.1; O2SAT 100; BMI 25.7
[2025-03-01 18:48] LABS: Glucose Urine UA Negative (Normal); Nitrate Urine Negative (Negative); Specific Gravity, Urine 1.020 (1.005-1.030)
[2025-03-01 18:53] LABS: Add Urine Microscopic? YES
[2025-03-01 20:00] VITALS: BP 118/71; PULSE 78; RESP 16; O2SAT 98
[2025-03-01 20:27] LABS: Hematocrit 27.6 % (36-47); Hemoglobin 7.90 g/dL (11.27-16.99); Mean Corpuscular HGB Conc 28.6 g/dL (30-55); Mean Corpuscular Hemoglobin 19.4 pg (27-33); Mean Corpuscular Volume 67.8 fl (85-98); Nucleated Red Blood Cells % 0 %; Platelet Count 261 10^3/cmm (157-399); Red Blood Count 4.07 10^6/uL (3.85-5.65); White Blood Count 11.34 10^3/uL (3.29-11.43)
[2025-03-01 20:41] LABS: HCG, Serum Qual Negative (Negative)
[2025-03-01 20:49] LABS: Alanine Aminotransferase 21 U/L (0-33); Albumin Level 3.7 g/dL (3.5-5.2); Alkaline Phosphatase 90 U/L (35-105); Anion Gap 14.7 (5-19); Aspartate Amino Transferase 22 U/L (0-32); Blood Urea Nitrogen 11 mg/dL (6-20); Calcium 8.8 mg/dL (8.5-10.5); Carbon Dioxide 23 mmol/L (22-29); Chloride 103 mmol/L (98-107); Creatinine Clr Calc Pharmacy 150.0941; Globulin 2.8 g/dL (1.3-4.6); Glucose 109 mg/dL (65-115); Osmolality Calculated 284 mOsm/kg (285-295); Potassium 3.7 mmol/L (3.5-5.1); Sodium 137 mmol/L (136-145); Total Protein 6.5 g/dL (6.6-8.7)
[2025-03-01 20:51] LABS: Acetaminophen < 5.0 ug/mL (10-30); Alcohol Level < 10 mg/dL (0-10); Salicylate < 0.3 mg/dL (3-10)
[2025-03-01 21:13] VITALS: BP 120/68; PULSE 76; RESP 19; TEMP 37.2; O2SAT 98
--- NOTE | 2025-03-01 21:16 | W.ED.PSYCHS ---
HPI - Psych General: Chief Complaint: Psychiatric Symptoms Stated Complaint: L middle finger needs drained Time Seen by Provider: 03/01/25 16:15 History of Present Illness: Patient is a 39-year-old female who presents to the emergency department with a painful infection of her right middle finger that has been present for 3-4 days. She reports pain that is shooting up her arm. The patient has no prior history of similar infections. Upon examination, the patient was found to have a paronychia of the right middle finger with fluctuance and purulent drainage. Additionally, the patient reports having suicidal thoughts for approximately one month. She acknowledges having a plan but is hesitant to act on it. She has a history of suicide attempts as a teenager. The patient is requesting psychiatric admission for these thoughts. She also mentions having surgical adhesions in her cervix for which she is seeking a new surgeon as her previous doctor is on maternity leave. Related Data Home Medications ?Medication ?Instructions ?Recorded ?Confirmed buprenorphine 4 mg-naloxone 1 mg 1 film buccal BID 11/27/24 11/27/24 sublingual film (Suboxone) Previous Rx's ?Medication ?Instructions ?Recorded bupropion HCl 150 mg 24 hr tablet, 150 mg PO QAM #30 tabs 11/27/24 extended release (Wellbutrin XL) buspirone 10 mg tablet 10 mg PO .morning #30 tabs 11/27/24 lamotrigine 100 mg tablet 100 mg PO .morning #14 tabs 11/27/24 (Lamictal) lamotrigine 150 mg tablet 150 mg PO .morning #30 tabs 11/27/24 (Lamictal) Allergies Allergy/AdvReac Type Severity Reaction Status Date / Time amoxicillin Allergy ALGY-Anaphy Verified 11/27/24 09:58 laxis Sulfa (Sulfonamide Allergy ALGY-Anaphy Verified 11/27/24 09:58 Antibiotics) laxis [facility] ED PFSH: Medical History (Updated 03/01/25 @ 21:20 by Enrique Estrada MD) Marijuana dependence Methamphetamine use disorder, severe, dependence Psychiatric care Strain of rectus abdominis muscle Chronic post-traumatic stress disorder Nicotine dependence, cigarettes, uncomplicated Cyclothymic disorder with anxious distress Social History Smoking and tobacco/nicotine status: current every day tobacco/nicotine user Quit status (tobacco/nicotine): not considering quitting Alcohol intake: current Substance/Drug Use: never Physical Exam Narrative: EXAM NARRATIVE: Somewhat poorly groomed 39-year-old female in noticeable discomfort with pain in the right middle finger. Const: COMMON NORMALS: average body habitus, alert and well nourished GENERAL APPEARANCE: cooperative ORIENTATION/CONSCIOUSNESS: Yes awake HENMT: COMMON NORMALS: normocephalic and atraumatic HEAD & SCALP: normocephalic and atraumatic Eye: COMMON NORMALS: conjunctivae normal CONJUNCTIVA: Yes conjunctivae normal Neck/C-Spine: GENERAL: Yes normal visual inspection Resp: COMMON NORMALS: normal respiratory effort, No retractions and No use of accessory muscles Cardio: COMMON NORMALS: regular rhythm and Peripheral pulses 2+ throughout RHYTHM: regular rhythm PERIPHERAL PULSES: Peripheral pulses 2+ throughout GI: COMMON NORMALS: Soft to palpation and non-tender PALPATION: Yes Soft to palpation Extremity: COMMON NORMALS: full ROM and no pedal edema NARRATIVE EXTREMITY EXAM: Patient with swelling to the right middle finger and paronychia with fluctuance noted on the dorsal lateral aspect of the fingernail. Neuro: COMMON NORMALS: no focal motor deficits SENSORIUM/ORIENTATION: Yes alert Psych: OTHER: Patient endorses having depression and feeling suicidal patient denies any current plan for suicide. Skin: COMMON NORMALS: no rashes or lesions noted GENERAL SKIN EXAM: no rashes or lesions noted Course Vital Signs: Vital signs: Vital Signs Temperature 98.7 F 03/01/25 16:11 Pulse Rate 78 03/01/25 20:00 Respiratory Rate 16 03/01/25 20:00 Blood Pressure 118/71 03/01/25 20:00 Pulse Oximetry 98 03/01/25 20:00 Oxygen Delivery Me thod Room Air 03/01/25 16:11 MDM - Psych Medical Decision Making ROS: Constitutional: No fever reported. Musculoskeletal: Pain and swelling in right middle finger with radiation up the arm. Psychiatric: Positive for suicidal ideation with plan for approximately one month. History of suicidal attempts as a teenager. All other systems were not specifically addressed in this encounter. MEDICATIONS AND ALLERGIES: Medications: - Wellbutrin - Lamictal - Buspar Past Surgical History: - Four C-sections - Bladder replacement - Appendectomy - Attempted lysis of adhesions in September Social History: - Tobacco: Current smoker - Alcohol: Occasional use - Drugs: Denies use INITIAL IMPRESSION AND PLAN: Given the history and presentation, the primary working diagnosis is paronychia of the right middle finger with active suicidal ideation and depression. Additional considerations include microcytic anemia. Based on this initial impression I will order: 1. Incision and drainage of the paronychia with digital block 2. Complete blood count and basic metabolic panel 3. test 4. Urinalysis 5. Toxicology screen including salicylates, acetaminophen, and ethanol 6. Iron studies including iron, TIBC, and ferritin 7. Antibiotic therapy after procedure 8. Psychiatric consultation for suicidal ideation 9. Hospitalist consultation regarding anemia TEST INTERPRETATIONS: Laboratory Results: - CBC: WBC 11.3, Hemoglobin 7.9, Hematocrit 27.6, Platelets 261 - Indices: MCV 67 (low), MCH 19 (low), MCHC 28 (low), consistent with microcytic anemia - Chemistry panel: Unremarkable - Beta HCG: Negative - Qualitative HCG: Negative - Urinalysis: Unremarkable - Toxicology: Salicylates, acetaminophen, and ethanol levels negative - Iron studies: Pending (ordered but results not available in [facility]) PROCEDURES: Procedure: Incision and Drainage of Right Middle Finger Paronychia Date/Time: 03/01/2025 Indication: Paronychia with fluctuance of the right middle finger Procedure Details: 1. Digital block performed with 7 mL of 1% lidocaine without epinephrine to the right middle finger 2. Area prepped with Betadine solution 3. 11-blade scalpel used to incise the area of fluctuance on the dorsal aspect of the middle finger 4. Moderate purulent drainage expressed 5. Abscess cavity irrigated with Betadine and saline solution 6. Bandage applied Complications: None. Patient tolerated the procedure well. CONSIDERED BUT NOT PERFORMED: Blood transfusion CONSIDERED but NOT DONE due to hemoglobin being above 7.0 g/dL, patient being asymptomatic from anemia, and having no cardiac risk factors that would necessitate urgent transfusion. FINAL IMPRESSION: Based on all the above, my clinical impression is most compatible with: 1. Paronychia of the right middle finger, requiring incision and drainage 2. Suicidal ideation with plan, requiring psychiatric admission 3. Microcytic anemia, likely iron deficiency, with hemoglobin of 7.9 g/dL 4. Depression, currently on medication management The clinical picture is not currently suggestive of sepsis, osteomyelitis, or necrotizing fasciitis. Although other conditions were also considered, they were deemed unlikely based on the clinical information available. CLINICAL DISPOSITION: The patient's current condition is stable from a medical perspective following successful I&D of the paronychia, but psychiatrically unstable due to active suicidal ideation with plan. The most appropriate and indicated disposition at this time is admission to the inpatient psychiatric unit. The patient requires psychiatric admission due to active suicidal ideation with plan that has been present for approximately one month. The patient has requested help and has a history of previous suicide attempts as a teenager. Outpatient management would not be appropriate given the severity of her suicidal thoughts and presence of a plan. For the paronychia, the patient will be started on clindamycin 300mg every 8 hours. The hospitalist was consulted regarding the patient's anemia (Hgb 7.9) and did not recommend blood transfusion at this time as the patient is asymptomatic and the hemoglobin is above 7.0 g/dL. The hospitalist will follow up on iron studies and evaluate further management from there. RISK STRATIFICATION AND CLINICAL DECISION RULES APPLIED: Suicidal Risk Assessment: High risk based on presence of active suicidal ideation with plan, history of previous suicide attempts, and patient's request for admission. This assessment influenced the decision for inpatient psychiatric admission rather than outpatient management. CASE SUMMARY: 39-year-old female with history of WPW, depression, and bladder replacement presented with a 3-4 day history of right middle finger paronychia and active suicidal ideation for one month. Patient underwent successful I&D of the paronychia with digital block, with moderate purulent drainage expressed. Laboratory evaluation revealed microcytic anemia with hemoglobin of 7.9 g/dL. Hospitalist consultation determined no need for urgent blood transfusion given stable hemoglobin >7.0 g/dL and absence of symptoms. Patient was started on clindamycin 300mg every 8 hours for the paronychia after Bactrim was considered but not given due to sulfa allergy. Due to active suicidal ideation with plan and patient's request for help, psychiatry was consulted and accepted the patient for inpatient admission. The patient will have follow-up of iron studies during admission with further management of anemia to be determined based on results. Lab Data I reviewed the patient's lab results. 03/01/25 20:00 03/01/25 20:00 Laboratory Results WBC 11.34 10^3/uL (3.29-11.43) 03/01/25 20:00 RBC 4.07 10^6/uL (3.85-5.65) 03/01/25 20:00 Hgb 7.90 g/dL (11.27-16.99) L 03/01/25 20:00 Hct 27.6 % (36-47) L 03/01/25 20:00 MCV 67.8 fl (85-98) L 03/01/25 20:00 MCH 19.4 pg (27-33) L 03/01/25 20:00 MCHC 28.6 g/dL (30-55) L 03/01/25 20:00 RDW 17.2 % (12.1-15.1) H 03/01/25 20:00 Plt Count 261 10^3/cmm (157-399) 03/01/25 20:00 MPV 10.4 fL (7.4-10.4) 03/01/25 20:00 Neut % (Auto) 71.5 % 03/01/25 20:00 Lymph % (Auto) 19.8 % 03/01/25 20:00 [place] % (Auto) 7.3 % 03/01/25 20:00 Eos % (Auto) 0.6 % 03/01/25 20:00 Baso % (Auto) 0.4 % 03/01/25 20:00 Neut # (Auto) 8.11 10^3/uL (1.8-7.7) H 03/01/25 20:00 Lymph # (Auto) 2.3 10^3/uL (0.8-4.8) 03/01/25 20:00 [place] # (Auto) 0.8 10^3/uL (0.2-0.9) 03/01/25 20:00 Eos # (Auto) 0.1 10^3/uL (0.0-0.8) 03/01/25 20:00 Baso # (Auto) 0.0 10^3/uL (0.0-0.1) 03/01/25 20:00 Nucleated RBC % (auto) 0 % 03/01/25 20:00 Nucleated RBCs # 0.0 /100WBC 03/01/25 20:00 Sodium 137 mmol/L (136-145) 03/01/25 20:00 Potassium 3.7 mmol/L (3.5-5.1) 03/01/25 20:00 Chloride 103 mmol/L (98-107) 03/01/25 20:00 Carbon Dioxide 23 mmol/L (22-29) 03/01/25 20:00 Anion Gap 14.7 (5-19) 03/01/25 20:00 BUN 11 mg/dL (6-20) 03/01/25 20:00 Creatinine 0.5 mg/dL (0.5-0.9) 03/01/25 20:00 GFR Calculation 138.1 mL/min (90-130) H 03/01/25 20:00 Glucose 109 mg/dL (65-115) 03/01/25 20:00 Calculated Osmolality 284 mOsm/kg (285-295) L 03/01/25 20:00 Calcium 8.8 mg/dL (8.5-10.5) 03/01/25 20:00 Total Bilirubin 0.3 mg/dL (0.15-1.2) 03/01/25 20:00 AST 22 U/L (0-32) 03/01/25 20:00 ALT 21 U/L (0-33) 03/01/25 20:00 Alkaline Phosphatase 90 U/L (35-105) 03/01/25 20:00 Total Protein 6.5 g/dL (6.6-8.7) L 03/01/25 20:00 Albumin 3.7 g/dL (3.5-5.2) 03/01/25 20:00 Globulin 2.8 g/dL (1.3-4.6) 03/01/25 20:00 HCG, Qual Negative (Negative) 03/01/25 20:00 Urine Color Yellow (Yellow) 03/01/25 18: Urine Appearance Clear (CLEAR) 03/01/25 18: Urine pH 7.0 (5-7) 03/01/25 18: Ur Specific [place] 1.020 (1.005-1.030) 03/01/25 18: Urine Protein Negative (Negative) 03/01/25 18: Urine Glucose (UA) Negative (Normal) 03/01/25 18: Urine Ketones Negative (Negative) 03/01/25 18: Urine Blood Negative (Negative) 03/01/25 18:27 Urine Nitrate Negative (Negative) 03/01/25 18:27 Urine Bilirubin Negative (Negative) 03/01/25 18:27 Urine Urobilinogen 1.0 mg/dL (Negative) 03/01/25 18:27 Ur Leukocyte Esterase Negative (Negative) 03/01/25 18:27 Urine RBC 0-2 /hpf (0-2) 03/01/25 18:27 Urine WBC 0-5 /hpf (0-5) 03/01/25 18:27 Ur Squamous Epith Cells 0-5 /hpf (0-5) 03/01/25 18:27 Amorphous Sediment Not Reportable 03/01/25 18:27 Urine Bacteria None seen /hpf (NONE) 03/01/25 18:27 Hyaline Casts 0-4 /lpf H 03/01/25 18:27 Salicylates < 0.3 mg/dL (3-10) L 03/01/25 20:00 Acetaminophen < 5.0 ug/mL (10-30) L 03/01/25 20:00 Ethyl Alcohol < 10 mg/dL (0-10) 03/01/25 20:00 No radiology studies performed this visit Discharge Plan Discharge Patient Disposition: Admitted As Inpatient Clinical Impression: Paronychia, Microcytic anemia, Depression, Suicidal ideation Condition: Stable Coding Level of Care Code ED Penology Teacher for Khoa Stevens
[2025-03-01 21:44] LABS: PCP Screen Urine Negative (Negative)
[2025-03-01 22:00] VITALS: BP 120/68; PULSE 76; RESP 19; TEMP 37.2; O2SAT 98
[2025-03-01 22:37] VITALS: BP 120/68; PULSE 76; RESP 19; TEMP 37.2; O2SAT 98
[2025-03-01 23:28] LABS: Ferritin 8 ng/mL (15-150); Iron 18 ug/dL (37-145); Total Iron Binding Capacity 454 mcg/dl; Unsaturated Iron Binding 436 ug/dL (112-347)
--- NOTE | 2025-03-02 04:18 | PC.ADMIT ---
Admission Note: The patient,Camille Hernandes,39 y/o, was given written information regarding hospital policies, unit procedures and contact persons. Patient's smoking status: current every day smoker. Vital Signs - 8 hr 03/01/25 21:13 03/01/25 22:00 03/01/25 22:37 Temperature 99.0 F 99.0 F 99.0 F Pulse Rate 76 76 76 Respiratory Rate 19 H 19 H 19 H Blood Pressure 120/68 120/68 120/68 Pulse Oximetry 98 98 98 Oxygen Delivery Method Room Air Room Air Room Air 03/01/25 23:33 Temperature Pulse Rate Respiratory Rate Blood Pressure Pulse Oximetry Oxygen Delivery Method Room Air 39 y/o female patient presented to the ER tonight for right middle finger pain present for 3 days. Patient endorsed that she had been feeling suicidal for one month but had no plan. Patient is alert and oriented to self, place and situation. Speech is mumbled and soft. She currently denies SI. The interview was difficult due to continued patient sedation. Patient has healing sores to bilateral posterior thigh. She appears disheveled with ewing body odor. Her affect is bewildered to flat. Patient was oriented to room and unit norms. Learning not accomplished. [ End ]
--- NOTE | 2025-03-02 06:37 | PC.NURSE ---
pt refused vs, nurse notified, resp 16
--- OUTSIDE RECORDS SUMMARY | 2025-03-02 07:03 | XMS_ITS | Clinical Summary ---
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 30 Tablet 09/30/2024 Active Active Problems Problem Noted Date Diagnosed Date Abdominal pain, acute, left lower quadrant 09/29 Abdominal adhesions 09/29/2024 Left ovarian enlargement 09/29/2024 Encounters Date Type Department Care Team Description 02/14/2025 External Device Data [facility] ABSTRACTION Provider, Abstract 02/14/2025 External Device Data [facility] ABSTRACTION Provider, Abstract 02/07/2025 Telephone [facility] [place] [id number] [place] [id number] Idalia Austin MD Surgical Consult 01/23/2025 External Device Data [facility] ABSTRACTION Provider, Abstract 01/16/2025 External Device Data [facility] ABSTRACTION Provider, Abstract 12/26/2024 External Device Data [facility] ABSTRACTION Provider, Abstract 12/20/2024 External Device Data [facility] ABSTRACTION Provider, Abstract 12/19/2024 External Device Data [facility] ABSTRACTION Provider, Abstract from Last 3 Months Immunizations Immunization Administration Dates Next Due Dt Dtp Dtap Vaccine 05/30/2002 Hepatitis B Vaccine 11/15/1998,07/05/1998,1997 Social History Tobacco Use Types Packs/Day Years Used Date Smoking Tobacco: Every Day Cigarettes Alcohol Use Standard Drinks/Week Comments No 0 (1 standard drink = 0.6 oz pur e alcohol) Comments Unknown Sex and Gender Information Value Date Recorded Sex Assigned at Not on file Legal Sex Female 2:44 PM CORRECTIONAL PROGRAM OFFICER Gender Identity Not on file Sexual Orientation Not on file Last Filed Vital Signs Vital Sign Reading Time Taken Comments Blood Pressure 118/50 09/30/2024 11:20 AM CORRECTIONAL PROGRAM OFFICER Pulse 69 09/30/2024 11:20 AM CORRECTIONAL PROGRAM OFFICER Temperature 36.4 C (97.6 F) 09/30/2024 11:20 AM CORRECTIONAL PROGRAM OFFICER Respiratory Rate 18 09/30/2024 11:20 AM CORRECTIONAL PROGRAM OFFICER Oxygen Saturation 97% 09/30/2024 11:20 AM CORRECTIONAL PROGRAM OFFICER Inhaled Oxygen Concentration - - Weight 70.4 kg (155 lb 1.6 oz) 09/29/2024 6:04 P M CORRECTIONAL PROGRAM OFFICER Height 165.1 cm (5' 5 ) 09/29/2024 6:04 PM CORRECTIONAL PROGRAM OFFICER Body Mass Index 25.81 09/29/2024 6:04 PM CORRECTIONAL PROGRAM OFFICER Plan of Treatment Health Maintenance Due Date Last Done Comments Pre-Diabetes and Diabetes Screening 1986 HPV VACCINES (1 - 3-dose series) 2001 HPV/Cotest (21-29) 2007 DTAP/TDAP/TD VACCINES (2 - Tdap) 05/30/2012 05/30/20 02 CERVICAL CANCER SCREENING 2016 HPV/Cotest (30-65) 2016 PAP SMEAR 2016 INFLUENZA VACCINE (#1) 2025 HEPATITIS B VACCINES Completed 11/15/1998, 07/05/1998, 05/21/1998 Insurance [employer] (INTERNAL) [facility] [employer] Advance Directives For more information, please contact: [phone] * Full Code (Latest Code Status on File) Date Activated Date Inactivated Comments 09/29/2024 8:07 PM 09/30/2024 6:17 PM
--- NOTE | 2025-03-02 07:41 | P.CONIM_ITS ---
Providers/Reason For Consult 2 Consulting Physician/Specialty*: PATIENCE THERON DO Reason for Consult*: Anemia workup on the patient with known microcytic anemia with a hemoglobin of almost 8 at 7.9 at presentation for psych admission Requesting Physician: MUSHTAQ MEJIA Attending Physician: Varun Gonzalez MD History of Present Illness History of Present Illness Camille Hernandes is a 39 year old female because of depression and headache for admission to [facility]. Patient hemoglobin in the emergency room was 7.9 not a transfuse level hemoglobin. Patient has a known history of microcytic anemia. Hospitalist were consulted to do iron workup. I saw patient and follow through with care and I put in iron workup studies and this will be followed up and I am sure this was done already outpatient before the diagnosis of microcytic anemia. Patient is asymptomatic. In the ED patient had paronychia of the index finger that was excised and patient was placed on doxycycline by the emergency room physician. This could be covered with a sterile 4 x 4. Review of Systems 2 Narrative: System review upon 10 organ review were entirely unremarkable patient is asymptomatic Medications/Allergies Home Medications ?Medication ?Instructions ?Recorded ?Confirmed ?Last Taken ?Type buprenorphine 4 mg-naloxone 1 mg 1 film buccal BID 11/27/24 Unknown History sublingual film (Suboxone) bupropion HCl 150 mg 24 hr tablet, 150 mg PO QAM #30 t abs 11/27/24 11/27/24 Unknown Rx extended release (Wellbutrin XL) buspirone 10 mg tablet 10 mg PO .morning #30 tabs 0 11/27/24 11/27/24 Unknown Rx lamotrigine 100 mg tablet 100 mg PO .morning #14 tabs 11/27/24 11/27/24 Unknown Rx (Lamictal) lamotrigine 150 mg tablet 150 mg PO .morning #30 tabs 11/27/24 11/27/24 Unknown Rx (Lamictal) Allergies Allergy/AdvReac Type Severity Reaction Status Date / Time amoxicillin Allergy ALGY-Anaphy Verified 11/27/24 09:58 laxis Sulfa (Sulfonamide Allergy ALGY-Anaphy Verified 11/27/24 09:58 Antibiotics) laxis Current Medications Generic Name Dose Route Start Last Admin Trade Name Freq PRN Reason Stop Dose Admin Clindamycin HCl 300 mg 03/01/25 21:15 03/01/25 21:53 Clindamycin 150 Mg Capsule PO 300 mg Q8H WALKER Administration Protocol PFSH Acute 2 PFSH: Medical History Marijuana dependence Methamphetamine use disorder, severe, dependence Psychiatric care Strain of rectus abdominis muscle Chronic post-traumatic stress disorder Nicotine dependence, cigarettes, uncomplicated Cyclothymic disorder with anxious distress Social History Smoking and tobacco/nicotine status: current every day tobacco/nicotine user Quit status (tobacco/nicotine): not considering quitting Alcohol intake: current Substance/Drug Use: never Female Reproductive History: Date of last menstrual period: 01/30/25 Vitals/I&O/Wt Last Vital Signs Temp 99.0 F 03/01/25 22:37 Pulse 76 03/01/25 22:37 Resp 19 H 03/01/25 22:37 BP 120/68 03/01/25 22:37 Pulse Ox 98 03/01/25 22:37 O2 Del Method Room Air 03/01/25 23:33 Weight last 48 hrs Weight 70.307 kg Physical Exam 2 Narrative: The patient looks well in no apparent distress denies any complaint Patient seen and evaluated at the [facility]. HEENT normocephalic atraumatic neck neck is supple cardiovascular heart rate is regular lungs are pretty much clear abdomen soft nontender nondistended unremarkable extremities are intact no edema has good pulses neurology has no focality lab studies lab studies reviewed and noted. Data 03/01/25 20:00 03/01/25 20:00 A&P Assessment and plan 1. Microcytic anemia: Patient seen and evaluated for workup of anemia. Anemia workup has been in place I have ordered the following -iron level -TIBC Reticulocyte count Reticulocyte index Ferritin Transferrin saturation Follow up the studies that have been ordered 2. Paronychia: Paronychia was excised pulse drained by the emergency room doctor Antibiotics initiated with oral clindamycin 300 mg 3 times daily x 10 days 3. Depression: Depression is deferred to the primary team 4. Suicidal ideation: Suicidal ideation defer to the primary team 5. Methamphetamine use disorder, severe, dependence: Methamphetamine use and abuse deferred to the primary team Plan: Patient can have Tylenol for pain PDMP PDMP Reviewed: Last Reviewed 03/02/25 08:07 by Cher Chaparro MD Consult Attestations 2 Medical Necessity Statement: I have seen and evaluated for this patient iron workup and this had been completed pending results. And this is for workup of anemia. Patient is already inpatient in [facility] and I as a independent marketing consultant following up with patient once this is done patient need to follow-up with the PCP who may refer her to a hematology or the person that had been following on this patient that had been already diagnosed with microcytic anemia for any further workup. Coding Level of Care Code 34746 Diagnoses Microcytic anemia D50.9 Paronychia Depression F32.A Suicidal ideation R45.851 Methamphetamine use disorder, severe, dependence F15.20 Time Spent (min) 60
[2025-03-02 09:01] LABS: Hematocrit 29.1 % (36-47); Retic Production Index 0.80
[2025-03-02 09:19] LABS: Ferritin 8 ng/mL (15-150); Iron 20 ug/dL (37-145); Total Iron Binding Capacity 420 mcg/dl; Transferrin 372 mg/dL (200-360); Unsaturated Iron Binding 400 ug/dL (112-347)
--- NOTE | 2025-03-02 11:59 | P.PN_ITS ---
Subjective 2 Subjective: s/p I&D of finger abscess, on ABx. Vitals/I&O/Wt Last Vital Signs Temp 99.0 F 03/01/25 22:37 Pulse 76 03/01/25 22:37 Resp 19 H 03/01/25 22:37 BP 120/68 03/01/25 22:37 Pulse Ox 98 03/01/25 22:37 O2 Del Method Room Air 03/01/25 23:33 Weight last 48 hrs Weight 70.307 kg Physical Exam 2 Const: COMMON NORMALS: no acute distress, average body habitus and patient oriented x3 OTHER: somnolent HENMT: COMMON NORMALS: normocephalic and atraumatic HEAD & SCALP: n ormocephalic and atraumatic Eye: COMMON NORMALS: Equal, round and reactive pupils present PUPIL: Yes Equal, round and reactive pupils present Neck/C-Spine: COMMON NORMALS: supple Resp: COMMON NORMALS: clear to auscultation bilaterally AUSCULTATION: clear to auscultation bilaterally Cardio: COMMON NORMALS: regular rate, regular rhythm, No gallops present (Cardio), No murmurs present (Cardio) and No rub (Cardio) RATE: regular rate RHYTHM: regular rhythm GI: COMMON NORMALS: Soft to palpation, non-tender and no masses PALPATION: Yes Soft to palpation Extremity: NARRATIVE EXTREMITY EXAM: ongoing purulent discharge from left 3rd digit with surrounding erythema Neuro: COMMON NORMALS: patient oriented x3 and CN's II-XII intact bilaterally Psych: COMMON NORMALS: mental status grossly normal Data 03/02/25 08:37 03/01/25 20:00 A&P Assessment and plan 1. Suicidal ideation: 2. Depression: 3. Microcytic anemia: 4. Paronychia: Plan: OKSANA - Microcytic anemia: Patient seen and evaluated for workup of anemia. Anemia workup has been in place I have ordered the following -iron level low, ferritin 8, with normal TIBC indicating OKSANA - Reticulocyte count inappropriately normal - can start oral iron, may need IV infusions if not responding - recheck iron levels as OP on follow up. 2. Paronychia: - Paronychia was excised and drained by the emergency room - Antibiotics changed to oral doxycycline BID. 3. Depression: Depression is deferred to the primary team 4. Suicidal ideation: Suicidal ideation defer to the primary team 5. Methamphetamine use disorder, severe, dependence: Methamphetamine use and abuse deferred to the primary team Plan: Patient can have Tylenol for pain - recheck labs on Mon. PDMP PDMP Reviewed: Not Reviewed Attestations 2 Medical Necessity Statement*: INpatient on psych hill for SI, anticipate > 2 midnights. Time Spent in Patient Care: 16 - 35 minutes (>than 50% of time sp ent in counselling and/or direct pt care on unit) . Coding Level of Care Code Acute Code for [facility] Fwd Diagnoses Suicidal ideation R45.851 Depression F32.A Microcytic anemia D50.9 Paronychia
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
[2025-03-02 14:00] VITALS: BP 114/72; PULSE 68; RESP 16; TEMP 37.3; O2SAT 98
--- NOTE | 2025-03-02 16:06 | PC.OT ---
OT evaluation attempted with pt sleeping soundly both times; will attempt again at later time.
[2025-03-02] MEDS: ferrous sulfate EC 325 mg Tablet PO (17:08)
[2025-03-02 21:34] VITALS: BP 120/75; PULSE 97; RESP 19; TEMP 37.1; O2SAT 98
[2025-03-03] VITALS (8 sets, daily range): BP systolic 115–164; BP diastolic 56–89; PULSE 69–89; RESP 15–20; TEMP 36.4–37.1; O2SAT 90–100
[2025-03-03] MEDS: ferrous sulfate EC 325 mg Tablet PO ×3 (08:00→18:39)
--- NOTE | 2025-03-03 10:20 | XRR_ITS ---
PROCEDURE INFORMATION: Exam: XR Right Hand Exam date and time: 03/03/2025 12:23 PM Age: 39 years old Clinical indication: Pain; Hand; Right; Additional info: Pain/swelling to distal RT 3rd digit; Open wound to area TECHNIQUE: Imaging protocol: Radiologic exam of the right hand. Views: 3 or more views. COMPARISON: No relevant prior studies available. FINDINGS: Bones/joints: Normal. Soft tissues: Soft tissue swelling involving the distal 3rd digit especially along the dorsal aspect. XR/XR hand RT min 3V* [id number] IMPRESSION: Soft tissue swelling without acute osseous abnormality.
[2025-03-03 11:18] LABS: Hematocrit 33.7 % (36-47); Hemoglobin 9.60 g/dL (11.27-16.99); Mean Corpuscular HGB Conc 28.5 g/dL (30-55); Mean Corpuscular Hemoglobin 19.6 pg (27-33); Mean Corpuscular Volume 68.6 fl (85-98); Nucleated Red Blood Cells % 0 %; Platelet Count 366 10^3/cmm (157-399); Red Blood Count 4.91 10^6/uL (3.85-5.65); White Blood Count 8.41 10^3/uL (3.29-11.43)
--- NOTE | 2025-03-03 12:00 | PM.PN ---
Subjective Subjective: increased fluctuance of left middle finger Vitals/I&O/Wt Last Vital Signs Temp 97.9 F 03/03/25 06:00 Pulse 89 03/03/25 06:00 Resp 18 03/03/25 06:00 BP 128/71 03/03/25 06:00 Pulse Ox 90 03/03/25 06:00 O2 Del Method Room Air 03/03/25 06:00 Weight last 48 hrs Weight 70.307 kg Physical Exam Const: COMMON NORMALS: no acute distress, average body habitus and patient oriented x3 OTHER: somnolent HENMT: COMMON NORMALS: normocephalic and atraumatic HEAD & SCALP: normocephalic and atraumatic Eye: COMMON NORMALS: Equal, round and reactive pupils present PUPIL: Yes Equal, round and reactive pupils present Neck/C-Spine: COMMON NORMALS: supple Resp: COMMON NORMALS: clear to auscultation bilaterally AUSCULTATION: clear to auscultation bilaterally Cardio: COMMON NORMALS: regular rate, regular rhythm, No gallops present (Cardio), No murmurs present (Cardio) and No rub (Cardio) RATE: regular rate RHYTHM: regular rhythm GI: COMMON NORMALS: Soft to palpation, non-tender and no masses PALPATION: Yes Soft to palpation Extremity: NARRATIVE EXTREMITY EXAM: No purulent discharge, increased fluctuance and tenderness of left 3rd digit with surrounding erythema Neuro: COMMON NORMALS: patient oriented x3 and CN's II-XII intact bilaterally Psych: COMMON NORMALS: mental status grossly normal Data 03/03/25 10:52 03/01/25 20:00 A&P Assessment and plan 1. Paronychia: 2. Methamphetamine use disorder, severe, dependence: 3. Suicidal ideation: Plan: OKSANA - Microcytic anemia: Patient seen and evaluated for workup of anemia. Anemia workup has been in place I have ordered the following -iron level low, ferritin 8, with normal TIBC indicating OKSANA - Reticulocyte count inappropriately normal - can start oral iron, may need IV infusions if not responding - recheck iron levels as OP on follow up. 2. Paronychia: - right middle finger Paronychia was excised and drained by the emergency room - Antibiotics changed to oral doxycycline BID. - no leukocytosis - increased fluctuance, surgery consulted. - hand xray ordered: pending 3. Depression: Depression is deferred to the primary team 4. Suicidal ideation: Suicidal ideation defer to the primary team 5. Polysubstance abuse - H/O IVDA - uses Methamphetamine 3-4 times per week - use disorder, severe, dependence: Methamphetamine use and abuse deferred to the primary team Plan: Patient can have Tylenol for pain - recheck labs on Mon. PDMP PDMP Reviewed: Not Reviewed Attestations Medical Necessity Statement*: Anticipate inpatient > 2 midnights for SI, drug abuse, paronychia Time Spent in Patient Care: 16 - 35 minutes (>than 50% of time spent in counselling and/or direct pt care on unit). Coding Level of Care Code Acute Code for [facility] Fwd Diagnoses Paronychia Methamphetamine use disorder, severe, dependence F15.20 Suicidal ideation R45.851
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
--- NOTE | 2025-03-03 14:00 | P.CONIM_ITS ---
Providers/Reason For Consult 2 Consulting Physician/Specialty*: Cheli Simmons, DO - General Surgery Reason for Consult*: Worsened Paronychia Requesting Physician: Dr. Waite Attending Physician: Varun Gonzalez MD History of Present Illness History of Present Illness Camille Hernandes is a 39 year old female who was admitted with Paronychia of right middle finger, Methamphetamine use disorder, severe, dependence, and Suicidal ideation. The ER doc performed an incision and drainage on 03/01/2025. I was consulted today for paronychia and worsened swelling of the right middle finger. The patient stated that the swelling and pain has been getting worse since it was drained two days ago. Review of Systems 2 General: Reports: 10 or more systems reviewed and unremarkable except in HPI and below Medications/Allergies Home Medications ?Medication ?Instructions ?Recorded ?Confirmed ?Last Taken ?Type buprenorphine 4 mg-naloxone 1 mg 1 film buccal BID 03/03/25 Unknown History sublingual film (Suboxone) bupropion HCl 150 mg 24 hr tablet, 150 mg PO QAM #30 t abs 11/27/24 03/03/25 Unknown Rx extended release (Wellbutrin XL) buspirone 10 mg tablet 10 mg PO .morning #30 tabs 0 11/27/24 03/03/25 Unknown Rx lamotrigine 100 mg tablet 100 mg PO .morning #14 tabs 11/27/24 03/03/25 Unknown Rx (Lamictal) lamotrigine 150 mg tablet 150 mg PO .morning #30 tabs 11/27/24 03/03/25 Unknown Rx (Lamictal) Allergies Allergy/AdvReac Type Severity Reaction Status Date / Time amoxicillin Allergy ALGY-Anaphy Verified 11/27/24 09:58 laxis Sulfa (Sulfonamide Allergy ALGY-Anaphy Verified 11/27/24 09:58 Antibiotics) laxis Current Medications Generic Name Dose Route Start Last Admin Trade Name Freq PRN Reason Stop Dose Admin Doxycycline Monohydrate 100 mg 03/02/25 18:00 03/03/25 08:01 Doxycycline 100 Mg Tablet PO 100 mg BID WALKER Administration Protocol Ferrous Sulfate 325 mg 03/02/25 18:00 03/03/25 12:47 Ferrous Sulfate Ec 325 Mg Tablet PO 325 mg TIDWM WALKER Administration Lamotrigine 150 mg 03/03/25 12:05 03/03/25 12:47 Lamotrigine 100 Mg Tablet PO 150 mg DAILY WALKER Administration PFSH Acute 2 PFSH: Medical History (Updated 03/03/25 @ 14:53 by Cheli Simmons MD) Marijuana dependence Methamphetamine use disorder, severe, dependence Psychiatric care Strain of rectus abdominis muscle Chronic post-traumatic stress disorder Nicotine dependence, cigarettes, uncomplicated Cyclothymic disorder with anxious distress Social History Smoking and tobacco/nicotine status: current every day tobacco/nicotine user Quit status (tobacco/nicotine): not considering quitting Alcohol intake: current Substance/Drug Use: never Female Reproductive History: Date of last menstrual period: 01/30/25 Vitals/I&O/Wt Last Vital Signs Temp 97.9 F 03/03/25 06:00 Pulse 89 03/03/25 06:00 Resp 18 03/03/25 06:00 BP 128/71 03/03/25 06:00 Pulse Ox 90 03/03/25 06:00 O2 Del Method Room Air 03/03/25 06:00 Weight last 48 hrs Weight 155 lb Physical Exam 2 Const: COMMON NORMALS: no acute distress, average body habitus and patient oriented x3 Chest: COMMONS NORMALS: normal inspection of the chest Resp: COMMON NORMALS: normal respiratory effort GI: COMMON NORMALS: Soft to palpation and non-tender PALPATION: Yes Soft to palpation Extremity: NARRATIVE EXTREMITY EXAM: Right middle finger: Edema, erythema, tenderness to palpation, with underlying fluctuance, and excoriation of overlying skin of bilateral distal right middle finger (starting from half way between the PIP and DIP and extending to the most distal aspect of the right middle finger). Neuro: COMMON NORMALS: patient oriented x3 Psych: COMMON NORMALS: mental status grossly normal Data 03/03/25 10:52 03/01/25 20:00 A&P Assessment and plan 1. Paronychia: --X-ray of right hand ordered: FINDINGS: Bones/joints: Normal. Soft tissues: Soft tissue swelling involving the distal 3rd digit especially along the dorsal aspect. XR/XR hand RT min 3V* [id number] IMPRESSION: Soft tissue swelling without acute osseous abnormality. --Transfer to med/surg --Start IV antibiotics. Recommend Clindamycin. -- Plan for incision and drainage of abscess of right middle finger, with excisional debridement of necrotic or devitalized right middle finger tissues, and likely nail avulsion of right middle finger. -- Prior to the surgery, the surgery and what it would entail were discussed with the patient in detail, including the risks, benefits, and potential alternative treatment options. Risks included, but were not limited to infection, bleeding, postoperative abscess, recurrence of paronychia, need for removal of the right middle finger fingernail, need for further surgery, pain, the fingernail may not grow back normally or at all, and heart or lung complications. All question were answered and the patient wished to proceed with surgery. -- This patient has refractory paronychia, and it is progressing bilaterally ( [id number] ), the infection likely has extended more deeply and will likely keep recurring if the nailbed is not removed. Removing the nail will allow for adequate drainage. -- If surgery is not performed the infection could spread to the surrounding bones and tendons, if it has not yet spread. Additionally, the infection could spread to the hand. 2. Felon of finger of right hand: 3. Bipolar depression: 4. Suicidal ideation: 5. Depression: 6. Microcytic anemia: 7. Marijuana dependence: 8. Methamphetamine use disorder, severe, dependence: 9. Chronic post-traumatic stress disorder: 10. Nicotine dependence, cigarettes, uncomplicated: PDMP PDMP Reviewed: Not Reviewed Coding Level of Care Code Acute Code for [facility] Diagnoses Paronychia Felon of finger of right hand L03.011 Bipolar depression F31.9 Suicidal ideation R45.851 Depression F32.A Microcytic anemia D50.9 Marijuana dependence F12.20 Methamphetamine use disorder, severe, dependence F15.20 Chronic post-traumatic stress disorder F43.12 Nicotine dependence, cigarettes, uncomplicated F17.210
--- NOTE | 2025-03-03 14:50 | PC.NURSE ---
Called to obtain report - patient ate a full tray at 1200. Dr. Simmons and Dr. Catalan notified. Patient brought to PACU bay 1 for bedside debridement by Dr. Simmons.
--- NOTE | 2025-03-03 15:05 | PC.NURSE ---
OFF UNIT TO OR.
[2025-03-03] MEDS: HYDROmorphone 1 mg/mL INJ 1ml 0.5 MG IVP (16:04)
--- NOTE | 2025-03-03 16:06 | SUR.OPER ---
On 03/03/25 patient was brought from NPU to PACU for irrigation and debridement of right middle finger abscess. Patient's right hand was soaked in warm sterile saline mixed with 50 ml betadine and 50 ml hebiclens. Patient's right hand was scrubbed with a betadine scrub brush, and then prepped with betadine paint. 1% lidocaine plain was injected per Dr. Simmons in right middle finger at 1606. 10 ml total. Aerobic and Anerobic cultures were obtained of wound. At 1630 silver nitrate sticks were added to field for hemostasis on right middle finger incision. Incisions were packed with 1/4 inch iodoform gauze. Dressings were xeroform, 4x4s, and 3in jimbo. Procedure end 1644.
--- NOTE | 2025-03-03 17:06 | PM.OP ---
Operative Report Date of procedure: March 03, 2025 Pre-op diagnosis: Paronychia of the right middle finger - with previous inadequate drainage on 03/01/2025 Post-op diagnosis: Paronychia of the right middle finger - with previous inadequate drainage on 03/01/2025 Procedure done: Incision and drainage of right middle finger abscess associated with paronychia of the right middle finger Specimens removed/disposition: Purulent fluid Sent for Gram stain, anaerobic and aerobic cultures and sensitivities. Pathology: None Surgeon: Cheli Simmons MD Estimated blood loss: Minimal, less than 0.5 cc Complications: None apparent Findings: Right middle finger: Edema, erythema, tenderness to palpation, with underlying fluctuance, and excoriation of overlying skin of bilateral aspects of the distal right middle finger (starting at the DIP and extending to the most distal aspect of the right middle finger). Procedure: Prior to the surgery, the surgery and what it would entail were discussed with the patient in detail, including the risks, benefits, and potential alternative treatment options. Risks included, but were not limited to infection, bleeding, injury to surrounding structures, postoperative abscess, recurrence of paronychia, need for removal of the right middle finger fingernail, need for further surgery, pain, that the fingernail may not grow back normally or at all, and heart or lung complications. If surgery is not performed in a timely manner, the infection could spread to the surrounding bones and tendons, if it has not yet spread to the bones and tendons. Additionally, the infection could spread to the hand. Although, X-ray demonstrated, soft tissue swelling without acute osseous abnormality. All question were answered and the patient wished to proceed with surgery. The patient had eaten lunch prior to the procedure and monitored anesthesia care or general anesthesia was no longer an option. The patient wished to proceed with the procedure under local anesthetic only. I marked my initials on the right middle finger. The patient's right hand was quite soiled. Prior to performing the digital nerve block, the right hand and forearm was washed, cleansed, and soaked in a basin of warmed dilute Betadine solution. Purulent fluid was forthcoming from the dorsal-radial aspect of the right middle finger just from the warmed solution soak only. The right hand was prepped and draped in the usual sterile fashion. A right digital nerve block was performed with 4.5 cc of 1% lidocaine injected on each side of the right middle finger. After adequate planes of anesthesia were achieved, a #15 blade scalpel blade was utilized to make bilateral incisions; one on the dorsal-radial aspect and a second on the dorsal-ulnar aspect, just proximal to the nail bed, being careful to avoid any tendons or tendon-sheaths. Additional, purulent fluid was forthcoming and a portion of the fluid was sent for Gram stain, anaerobic and aerobic cultures and sensitivities. The infection/abscess did not appear to extend more deeply and adequate drainage was achieved. The right middle finger fingernail was not removed. A mosquito forceps was utilized to gently disrupt any loculations, care was taken to avoid any tendinous structures. All of the purulent fluid was expressed. The patient was able to flex her right fingers, make a fist, and extend her right fingers. The right middle finger was irrigated with copious amounts of warm sterile saline. All sponge, needle, and instrument counts were noted to be correct. A tiny amount of quarter inch iodoform strip gauze was placed within each of the small wounds, followed by Xeroform gauze, and a light dressing of 4 x 4 gauze and rolled gauze. The patient tolerated the procedure well and was transferred back to [facility] without complication.
[2025-03-03] MEDS: quetiapine XR (24HR) 50 mg Tablet PO (18:40)
[2025-03-03] MEDS: ferric gluconate 125 MG in sodium chloride 0.9% (100 ml) 100 ML 110 MG IV (18:43)
[2025-03-03] MEDS: HYDROcodone-acetaminophen 5-325 mg Tablet 1 TAB PO (18:58)
[2025-03-04] VITALS (7 sets, daily range): BP systolic 118–149; BP diastolic 70–82; PULSE 62–78; RESP 15–18; TEMP 36.7–37; O2SAT 96–99
[2025-03-04] MEDS: HYDROcodone-acetaminophen 5-325 mg Tablet 1 TAB PO ×2 (10:04→22:57)
[2025-03-04] MEDS: ferrous sulfate EC 325 mg Tablet PO ×3 (10:06→17:34)
[2025-03-04 10:07] LABS: Hematocrit 27.7 % (36-47); Hemoglobin 7.90 g/dL (11.27-16.99); Mean Corpuscular HGB Conc 28.5 g/dL (30-55); Mean Corpuscular Hemoglobin 19.4 pg (27-33); Mean Corpuscular Volume 67.9 fl (85-98); Nucleated Red Blood Cells % 0 %; Platelet Count 254 10^3/cmm (157-399); Red Blood Count 4.08 10^6/uL (3.85-5.65); White Blood Count 4.82 10^3/uL (3.29-11.43)
--- NOTE | 2025-03-04 11:14 | P.PN_ITS ---
Subjective 2 Subjective: The patient was seen and evaluated at bedside today. The patient's right hand pain has significantly improved and she has full range of motion, with both flexion/extension of the right fingers, and making a fist. The right hand dressings were removed. Vitals/I&O/Wt Last Vital Signs Temp 98.2 F 03/04/25 08:32 Pulse 68 03/04/25 08:32 Resp 17 03/04/25 04:00 BP 135/76 03/04/25 08:32 Pulse Ox 98 03/04/25 08:32 O2 Del Method Room Air 03/04/25 08:32 03/03/25 03/04/25 03/04/25 22:59 06:59 14:59 Intake Total 280 / 280 50 / 330 530 / 530 Balance 280 / 280 50 / 330 530 / 530 Physical Exam 2 Const: COMMON NORMALS: no acute distress, average body habitus and patient oriented x3 Chest: COMMONS NORMALS: normal inspection of the chest Resp: COMMON NORMALS: normal respiratory effort and No use of accessory muscles Extremity: OTHER: Right hand exam: Full range of motion, with both flexion/extension of the right fingers, and making a fist. Right distal finger: No erythema, no edema, no sign of necrotic or devitalized tissues, no purulent drainage, and no malodor. A portion of the overlying layer of skin is partially desquamated. The palmar surface of the right distal fingertip also is normal, with no erythema, no edema, and no underlying fluctuance. Capillary refill within the right nail bed is brisk and normal. Neuro: COMMON NORMALS: patient oriented x3 Data 03/04/25 09:59 03/01/25 20:00 A&P Assessment and plan 1. Paronychia: -- Status post - Incision and drainage of right middle finger abscess associated with paronychia of the right middle finger on March 03, 2025: -- Patient has Full range of motion, with both flexion/extension of the right fingers, and making a fist. -- Right middle finger soak with warmed [id number] sterile saline and hydrogen peroxide solution performed at bedside today, sterile dressings placed. -- Continue IV antibiotics. Recommend Clindamycin. --Follow wound fluid Gram stain, aerobic anaerobic cultures and sensitivities. -- Start twice daily soaks with warmed [id number] sterile saline and hydrogen peroxide. -- Followed by dressing changes - quarter inch iodoform strip gauze in the wounds, Xeroform gauze over top, followed by a light dressing of 4 x 4 gauze and rolled gauze. -- Serial right hand exams. 2. Felon of finger of right hand: 3. Bipolar depression: 4. Suicidal ideation: 5. Depression: 6. Microcytic anemia: 7. Marijuana dependence: 8. Methamphetamine use disorder, severe, dependence: 9. Chronic post-traumatic stress disorder: 10. Nicotine dependence, cigarettes, uncomplicated: PDMP PDMP Reviewed: Not Reviewed Attestations 2 Medical Necessity Statement*: IV antibiotics, wound care, and serial exams. Coding Level of Care Code Acute Code for [facility] Diagnoses Paronychia Felon of finger of right hand L03.011 Bipolar depression F31.9 Suicidal ideation R45.851 Depression F32.A Microcytic anemia D50.9 Marijuana dependence F12.20 Methamphetamine use disorder, severe, dependence F15.20 Chronic post-traumatic stress disorder F43.12 Nicotine dependence, cigarettes, uncomplicated F17.210
--- NOTE | 2025-03-04 11:17 | PM.OP ---
Operative Report Date of procedure: March 03, 2025 Surgeon: Cheli Simmons MD
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
--- NOTE | 2025-03-04 12:48 | P.PN_ITS ---
Subjective 2 Subjective: finger is doing better after I&D. Vitals/I&O/Wt Last Vital Signs Temp 98.6 F 03/04/25 11:50 Pulse 78 03/04/25 11:50 Resp 17 03/04/25 04:00 BP 134/81 03/04/25 11:50 Pulse Ox 98 03/04/25 11:50 O2 Del Method Room Air 03/04/25 11:50 03/03/25 03/04/25 03/04/25 22:59 06:59 14:59 Intake Total 280 / 280 50 / 330 770 / 770 Balance 280 / 280 50 / 330 770 / 770 Physical Exam 2 Const: COMMON NORMALS: no acute distress, average body habitus and patient oriented x3 OTHER: somnolent HENMT: COMMON NORMALS: normocephalic and atraumatic HEAD & SCALP: n ormocephalic and atraumatic Eye: COMMON NORMALS: Equal, round and reactive pupils present PUPIL: Yes Equal, round and reactive pupils present Neck/C-Spine: COMMON NORMALS: supple Resp: COMMON NORMALS: clear to auscultation bilaterally AUSCULTATION: clear to auscultation bilaterally Cardio: COMMON NORMALS: regular rate, regular rhythm, No gallops present (Cardio), No murmurs present (Cardio) and No rub (Cardio) RATE: regular rate RHYTHM: regular rhythm GI: COMMON NORMALS: Soft to palpation, non-tender and no masses PALPATION: Yes Soft to palpation Extremity: NARRATIVE EXTREMITY EXAM: left 3rd digit s/p I&D, edema improved. Neuro: COMMON NORMALS: patient oriented x3 and CN's II-XII intact bilaterally Psych: COMMON NORMALS: mental status grossly normal Data 03/04/25 09:59 03/01/25 20:00 A&P Assessment and plan 1. Microcytic anemia: 2. Paronychia: Plan: OKSANA acute on chronic anemia suspect menorrhagia -iron level low, ferritin 8, with normal TIBC indicating [place]NA - Reticulocyte count inappropriately normal - can start oral iron - given one unit IV iron - recheck iron levels as OP on follow up. - patient states she has heavy periods, no [employer]AIL [employer]IENT SOL[employer]IONS ANALYST follow up - recommend that she establish RETAIL [employer]IENT SOLUTIONS ANALYST follow up after discharge. 2. Paronychia: - right middle finger Paronychia was excised and drained by the emergency room - no leukocytosis - increased fluctuance, surgery consulted. - hand xray ordered: soft tissue swelling - now S/P I&D per surgery, cont. soaks - cont. IV abx inpatient, switch to appropriate oral after discharge or tx back to psych 3. Depression: Depression is deferred to the primary team 4. Suicidal ideation: Suicidal ideation defer to the primary team 5. Polysubstance abuse - H/O IVDA - uses Methamphetamine 3-4 times per week - use disorder, severe, dependence: Methamphetamine use and abuse deferred to the primary team PPx: hold for sx Diet: regular Disposition - she was transferred to floor for I&D and IV abx, transfer back to psych unit when appropriate. - will need outpatient svp operations follow up for anemia suspect menorrhagia PDMP PDMP Reviewed: Not Reviewed Attestations 2 Medical Necessity Statement*: Anticipate inpatient > 2 midnights for SI, drug abuse, paronychia Coding Level of Care Code Acute Code for [facility] Diagnoses Microcytic anemia D50.9 Paronychia
[2025-03-04] MEDS: quetiapine XR (24HR) 50 mg Tablet PO (17:34)
[2025-03-05 04:00] VITALS: BP 106/69; PULSE 73; RESP 16; TEMP 37; O2SAT 98
[2025-03-05 07:29] VITALS: BP 108/63; PULSE 68; RESP 17; TEMP 36.4; O2SAT 98
--- NOTE | 2025-03-05 08:23 | P.PN_ITS ---
Subjective 2 Subjective: The patient was seen and evaluated at bedside this morning. Her right middle finger pain has improved significantly. She is able to flex and extend her right hand fingers and she is able to make a fist. She denied nausea, vomiting, fevers, or chills. She has been afebrile and hemodynamically normal, satting above 97 on room air. WBC remains normal. Vitals/I&O/Wt Last Vital Signs Temp 97.6 F 03/05/25 07:29 Pulse 68 03/05/25 07:29 Resp 17 03/05/25 07:29 BP 108/63 03/05/25 07:29 Pulse Ox 98 03/05/25 07:29 O2 Del Method Room Air 03/05/25 07:29 03/04/25 03/05/25 03/05/25 22:59 06:59 14:59 Intake Total 770 / 1540 50 / 1590 Balance 770 / 1540 50 / 1590 Physical Exam 2 Const: COMMON NORMALS: no acute distress, average body habitus, patient oriented x3 and alert HENMT: COMMON NORMALS: normocephalic and atraumatic HEAD & SCALP: n ormocephalic and atraumatic Extremity: OTHER: Right hand exam: Right middle distal finger: No erythema, no edema, no sign of necrotic or devitalized tissues, no purulent drainage, and no malodor. A portion of the overlying layer of skin (just proximal to the nail bed) is macerated. The [place] surface of the right distal fingertip also is normal, with no erythema, no edema, and no underlying fluctuance. Capillary refill within the right middle finger nail bed is brisk and normal. Neuro: COMMON NORMALS: patient oriented x3 SENSORIUM/ORIENTATION: Yes alert Data 03/04/25 09:59 03/01/25 20:00 Micro: Microbiology 03/03/25 16:15 Gram Stain - Final Finger - #1 A&P Assessment and plan 1. Paronychia: -- Status post - Incision and drainage of right middle finger abscess associated with paronychia of the right middle finger on March 03, 2025: -- Patient has full range of motion, with both flexion/extension of the right fingers. She is able to make a fist. Plan: Change soaks and dressing change to once daily: Wound care Instructions: Right middle finger soak with warmed [id number] sterile saline and hydrogen peroxide solution. Followed by dressing changes - quarter inch iodoform strip gauze in the wounds, Xeroform gauze over top, followed by a light dressing of 4 x 4 gauze and rolled gauze. Do not wrap the Xerofrom all the way around the finger. -- Transition to oral Clindamycin (14 days total antibiotics). Follow wound fluid Gram stain, aerobic anaerobic cultures and sensitivities for final antibiotic choice. Discussed this with Dr. Dudley (he will make changes if needed). Keflex would also be a viable alternative. -- Once transitioned to oral antibiotics may go back to psych. -- Follow up with Dr. David Richardson in clinic in 1-2 weeks. -- The plan was discussed with the patient and her nurse. Surgery will sign off for now. 2. Felon of finger of right hand: 3. Bipolar depression: 4. Suicidal ideation: 5. Depression: 6. Microcytic anemia: 7. Marijuana dependence: 8. Methamphetamine use disorder, severe, dependence: 9. Chronic post-traumatic stress disorder: 10. Nicotine dependence, cigarettes, uncomplicated: PDMP PDMP Reviewed: Not Reviewed Attestations 2 Medical Necessity Statement*: Antibiotics, monitor vital signs, wound care. Coding Level of Care Code Acute Code for [facility] Diagnoses Paronychia Felon of finger of right hand L03.011 Bipolar depression F31.9 Suicidal ideation R45.851 Depression F32.A Microcytic anemia D50.9 Marijuana dependence F12.20 Methamphetamine use disorder, severe, dependence F15.20 Chronic post-traumatic stress disorder F43.12 Nicotine dependence, cigarettes, uncomplicated F17.210
[2025-03-05 08:50] LABS: Hematocrit 29.4 % (36-47); Hemoglobin 8.30 g/dL (11.27-16.99); Mean Corpuscular HGB Conc 28.2 g/dL (30-55); Mean Corpuscular Hemoglobin 19.1 pg (27-33); Mean Corpuscular Volume 67.7 fl (85-98); Nucleated Red Blood Cells % 0 %; Platelet Count 286 10^3/cmm (157-399); Red Blood Count 4.34 10^6/uL (3.85-5.65); White Blood Count 5.49 10^3/uL (3.29-11.43)
[2025-03-05 09:07] LABS: Anion Gap 12.6 (5-19); Blood Urea Nitrogen 12 mg/dL (6-20); Calcium 8.9 mg/dL (8.5-10.5); Carbon Dioxide 27 mmol/L (22-29); Chloride 104 mmol/L (98-107); Creatinine Clr Calc Pharmacy 125.0784; Glucose 103 mg/dL (65-115); Osmolality Calculated 288 mOsm/kg (285-295); Potassium 4.6 mmol/L (3.5-5.1); Sodium 139 mmol/L (136-145)
[2025-03-05] MEDS: ferrous sulfate EC 325 mg Tablet PO ×3 (09:25→17:33)
[2025-03-05 11:38] VITALS: BP 111/74; PULSE 74; RESP 17; TEMP 36.3; O2SAT 99
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
--- NOTE | 2025-03-05 14:44 | PC.NURSE ---
Pt skin assessment done by a female nurse. Follow up was unremarkable. Bandage on surgical finger was brand new. Patiet was hungry she was givwn a cookie and some lemonade.
[2025-03-05 16:00] VITALS: BP 110/74; PULSE 74; RESP 16; TEMP 36.9; O2SAT 98
--- NOTE | 2025-03-05 17:24 | PM.TDS ---
Transfer Summary Providers Date of Admission: 03/01/25 21:13 Date of Discharge/Transfer: 03/05/25 Attending Provider at Admission: Varun Gonzalez MD Attending Provider at Transfer: Varun Gonzalez MD Transfer Plans: Anticipated date of transfer: 03/05/25. Diagnoses at Discharge Discharge Diagnosis 1. Bipolar depression: 2. Methamphetamine use disorder, severe, dependence: 3. Chronic post-traumatic stress disorder: 4. Suicidal ideation: 5. Cyclothymic disorder: Reason for Visit Reason for Visit L middle finger needs drained Hospital Course Hospital Course History and Hospital course as per the retrospective notes and the patient: 39-year-old female with a history of bipolar 2 disorder admitted with severe depression and suicidal ideation in the context of continued use of methamphetamine and opiates. Internal medicine was consulted due to paronychia of the right middle finger with fluctuance and purulent discharge. The patient was admitted under medicine, managed by the surgery by incision and drainage. During her stay in the internal medicine care no complications were encountered. She was kept on clindamycin IV and switch to oral aspirin General Surgery recommendations. General surgery further recommended to continue total 14 days of oral antibiotics and to follow-up with Dr. SCHUYLER MANN as outpatient. The patient transferred to psych after stabilization established and discussed with the psych attending Dr Gonzalez. The patient was informed about the plan of care and agreed without any language barrier. And to continue rest of the psychiatric acute conditions as per the primary team plan Physical Exam Narrative: General: Alert oriented x3, patient seen lying comfortably without any concerns or distress HEENT: Normocephalic, atraumatic, EOMI, breathing pattern normal saturation on room air Cardio: Regular rate rhythm, normal S1-S2, no murmurs rubs gallops, Respiratory: Good bilateral air entry, no wheezes no rhonchi appreciated GI: Abdomen soft, nontender, nondistended, normoactive bowel sounds present all 4 quadrants, Neuro: Cranial nerves II to XII intact, strength 5/5, sensation 5/5, no gross neurological deficit Behavior: Appropriate and cooperative Skin/extremities pulses 2+, right middle finger covered with dressing no pain or limitation of the movement of the finger or the hand TS Data Studies Completed and Pending Pending at discharge Category Date Time Status Abscess Culture and Gram Stain Routine Lab 03/03/25 16:15 Results Completed Studies During Hospitalization Category Date Time Status XR hand RT min 3V* [id number] Routine Exams 03/03/25 10:20 Completed Laboratory Last Values WBC 5.49 10^3/uL (3.29-11.43) 03/05/25 08:42 RBC 4.34 10^6/uL (3.85-5.65) 03/05/25 08:42 Hgb 8.30 g/dL (11.27-16.99) L 03/05/25 08:42 Hct 29.4 % (36-47) L 03/05/25 08:42 MCV 67.7 fl (85-98) L 03/05/25 08:42 MCH 19.1 pg (27-33) L 03/05/25 08:42 MCHC 28.2 g/dL (30-55) L 03/05/25 08:42 RDW 18.2 % (12.1-15.1) H 03/05/25 08:42 Plt Count 286 10^3/cmm (157-399) 03/05/25 08:42 MPV 10.1 fL (7.4-10.4) 03/05/25 08:42 Neut % (Auto) 55.5 % 03/05/25 08:42 Lymph % (Auto) 33.9 % 03/05/25 08:42 [place] % (Auto) 6.9 % 03/05/25 08:42 Eos % (Auto) 2.6 % 03/05/25 08:42 Baso % (Auto) 0.9 % 03/05/25 08:42 Reticulocyte % (Auto) 1.1 % (0.5-2.0) 03/02/25 08:37 Neut # (Auto) 3.05 10^3/uL (1.8-7.7) 03/05/25 08:42 Lymph # (Auto) 1.9 10^3/uL (0.8-4.8) 03/05/25 08:42 [place] # (Auto) 0.4 10^3/uL (0.2-0.9) 03/05/25 08:42 Eos # (Auto) 0.1 10^3/uL (0.0-0.8) 03/05/25 08:42 Baso # (Auto) 0.1 10^3/uL (0.0-0.1) 03/05/25 08:42 Nucleated RBC % (auto) 0 % 03/05/25 08:42 Nucleated RBCs # 0.0 /100WBC 03/05/25 08:42 Retic Production Index 0.80 03/02/25 08:37 Sodium 139 mmol/L (136-145) 03/05/25 08:42 Potassium 4.6 mmol/L (3.5-5.1) 03/05/25 08:42 Chloride 104 mmol/L (98-107) 03/05/25 08:42 Carbon Dioxide 27 mmol/L (22-29) 03/05/25 08:42 Anion Gap 12.6 (5-19) 03/05/25 08:42 BUN 12 mg/dL (6-20) 03/05/25 08:42 Creatinine 0.6 mg/dL (0.5-0.9) 03/05/25 08:42 GFR Calculation 111.9 mL/min (90-130) 03/05/25 08:42 Glucose 103 mg/dL (65-115) 03/05/25 08:42 Calculated Osmolality 288 mOsm/kg (285-295) 03/05/25 08:42 Calcium 8.9 mg/dL (8.5-10.5) 03/05/25 08:42 Iron 20 ug/dL (37-145) L 03/02/25 08:37 TIBC 420 mcg/dl 03/02/25 08:37 % Saturation 4.7 % (20-50) L 03/02/25 08:37 Unsat Iron Binding 400 ug/dL (112-347) H 03/02/25 08:37 Transferrin 372 mg/dL (200-360) H 03/02/25 08:37 Ferritin 8 ng/mL (15-150) L 03/02/25 08:37 Total Bilirubin 0.3 mg/dL (0.15-1.2) 03/01/25 20:00 AST 22 U/L (0-32) 03/01/25 20:00 ALT 21 U/L (0-33) 03/01/25 20:00 Alkaline Phosphatase 90 U/L (35-105) 03/01/25 20:00 Total Protein 6.5 g/dL (6.6-8.7) L 03/01/25 20:00 Albumin 3.7 g/dL (3.5-5.2) 03/01/25 20:00 Globulin 2.8 g/dL (1.3-4.6) 03/01/25 20:00 HCG, Qual Negative (Negative) 03/01/25 20:00 Urine Color Yellow (Yellow) 03/01/25 18:27 Urine Appearance Clear (CLEAR) 03/01/25 18:27 Urine pH 7.0 (5-7) 03/01/25 18:27 Ur Specific Wing 1.020 (1.005-1.030) 03/01/25 18:27 Urine Protein Negative (Negative) 03/01/25 18:27 Urine Glucose (UA) Negative (Normal) 03/01/25 18: Urine Ketones Negative (Negative) 03/01/25 18:27 Urine Blood Negative (Negative) 03/01/25 18:27 Urine Nitrate Negative (Negative) 03/01/25 18:27 Urine Bilirubin Negative (Negative) 03/01/25 18:27 Urine Urobilinogen 1.0 mg/dL (Negative) 03/01/25 18:27 Ur Leukocyte Esterase Negative (Negative) 03/01/25 18:27 Urine RBC 0-2 /hpf (0-2) 03/01/25 18:27 Urine WBC 0-5 /hpf (0-5) 03/01/25 18:27 Ur Squamous Epith Cells 0-5 /hpf (0-5) 03/01/25 18:27 Amorphous Sediment Not Reportable 03/01/25 18:27 Urine Bacteria None seen /hpf (NONE) 03/01/25 18:27 Hyaline Casts 0-4 /lpf H 03/01/25 18:27 Salicylates < 0.3 mg/dL (3-10) L 03/01/25 20:00 Urine Opiates Screen Negative ng/mL (Negative) 03/01/25 18:27 Acetaminophen < 5.0 ug/mL (10-30) L 03/01/25 20:00 Ur Barbiturates Screen Negative ng/mL (Negative) 03/01/25 18:27 Ur Phencyclidine Scrn Negative ng/mL (Negative) 03/01/25 18:27 Ur Amphetamines Screen Positive ng/mL (Negative) H 03/01/25 18:27 U Benzodiazepines Scrn Negative ng/mL (Negative) 03/01/25 18:27 Urine Cocaine Screen Negative ng/mL (Negative) 03/01/25 18:27 U Marijuana (THC) Screen Negative ng/mL (Negative) 03/01/25 18:27 Ethyl Alcohol < 10 mg/dL (0-10) 03/01/25 20:00 Radiology Impressions Hand X-Ray 03/03/25 10:20 IMPRESSION: Soft tissue swelling without acute osseous abnormality. Recent Clincial Data Last Vital Signs Temp 98.5 F 03/05/25 16:00 Pulse 74 03/05/25 16:00 Resp 16 03/05/25 16:00 BP 110/74 03/05/25 16:00 Pulse Ox 98 03/05/25 16:00 O2 Del Method Room Air 03/05/25 16:00 Vital Signs Temp Pulse Resp BP Pulse Ox O2 Del Method 03/05/25 16:00 98.5 F 74 16 110/74 98 Room Air 03/05/25 11:38 97.4 F L 74 17 111/74 99 Room Air 03/05/25 07:29 97.6 F 68 17 108/63 98 Room Air Intake & Output/Weight 03/03/25 03/04/25 03/05/25 03/06/25 06:59 06:59 06:59 06:59 Intake Total 330 / 330 1590 / 1590 1130 / 1130 Balance 330 / 330 1590 / 1590 1130 / 1130 Vitals Last Vital Signs Temp 98.5 F 03/05/25 16:00 Pulse 74 03/05/25 16:00 Resp 16 03/05/25 16:00 BP 110/74 03/05/25 16:00 Pulse Ox 98 03/05/25 16:00 O2 Del Method Room Air 03/05/25 16:00 TS Medications Medications Acetaminophen (Acetaminophen 325 Mg Tablet) 650 mg PO Q4H PRN PRN Reason: MILD PAIN Hydrocodone Bitart/Acetaminophen (Hydrocodone-Acetaminophen 5-325 Mg Tablet) 1 tab PO Q4H PRN PRN Reason: MODERATE PAIN Last Admin: 03/04/25 22:57 Dose: 1 tab Benztropine Mesylate (Benztropine 1 Mg Tablet) 1 mg PO BID PRN PRN Reason: Mild Extrapyramidal symptoms Bupropion HCl (Bupropion Xl (24 Hr) 150 Mg Tablet) 150 mg PO DAILY [facility] Last Admin: 03/05/25 09:25 Dose: 150 mg Camphor/Menthol/Phenol (Blistex Lip Oint 7 Gm Tube) 1 applic TOPICAL Q1H PRN PRN Reason: DRYNESS Clindamycin HCl (Clindamycin 150 Mg Capsule) 300 mg PO Q6H [facility]; Protocol Stop: 03/18/25 14:39 Last Admin: 03/05/25 16:30 Dose: 300 mg Diphenhydramine HCl (Diphenhydramine 50 Mg/Ml Sdv 1ml) 50 mg IM ONCE PRN PRN Reason: Severe Extrapyramidal Symptoms Diphenhydramine HCl (Diphenhydramine 50 Mg/Ml Sdv 1ml) 50 mg IM Q4H PRN PRN Reason: Severe Aggression Ferrous Sulfate (Ferrous Sulfate Ec 325 Mg Tablet) 325 mg PO TIDWM [facility] Last Admin: 03/05/25 11:37 Dose: 325 mg Haloperidol (Haloperidol 5 Mg Tablet) 5 mg PO Q4H PRN PRN Reason: AGITATION Haloperidol Lactate (Haloperidol Inj 5 Mg/Ml Inj 1 Ml) 5 mg IM Q4H PRN PRN Reason: Severe Aggression Hydroxyzine Pamoate (Hydroxyzine 25 Mg Capsule) 50 mg PO Q6H PRN PRN Reason: ANXIETY Ibuprofen (Ibuprofen 600 Mg Tablet) 600 mg PO Q6H PRN PRN Reason: MODERATE PAIN Last Admin: 03/03/25 17:32 Dose: 600 mg Lamotrigine (Lamotrigine 100 Mg Tablet) 150 mg PO DAILY [facility] Last Admin: 03/05/25 09:25 Dose: 150 mg Loperamide HCl (Loperamide 2 Mg Capsule) 2 mg PO Q6H PRN PRN Reason: DIARRHEA Lorazepam (Lorazepam 1 Mg/0.5 Ml Injection) 2 mg IM Q4H PRN PRN Reason: Severe Aggression Nicotine (Nicotine 21 Mg Patch) 1 patch TRANSDERMA DAILY PRN PRN Reason: NICOTINE WITHDRAWAL Last Admin: 03/03/25 18:40 Dose: 1 patch Nicotine Polacrilex (Nicotine 2 Mg Gum) 2 mg BUCCAL Q2H PRN PRN Reason: NICOTINE WITHDRAWAL Olanzapine (Olanzapine 5 Mg Odt) 5 mg PO Q4H PRN PRN Reason: Agitation/Psychosis Ondansetron HCl (Ondansetron 4 Mg Tablet) 4 mg PO Q6H PRN PRN Reason: NAUSEA AND VOMITING Quetiapine Fumarate (Quetiapine Xr (24hr) 50 Mg Tablet) 100 mg PO 1800 [facility] Trazodone HCl (Trazodone 50 Mg Tablet) 50 mg PO BEDTIME PRN PRN Reason: SLEEP Last Admin: 03/05/25 00:00 Dose: 50 mg Discontinued Medications Buspirone HCl (Buspirone 10 Mg Tablet) 10 mg PO DAILY [facility] Last Admin: 03/03/25 08:01 Dose: 10 mg Camphor/Menthol/Phenol (Blistex Lip Oint 7 Gm Tube) 1 applic TOPICAL Q1H PRN PRN Reason: DRYNESS Clindamycin HCl (Clindamycin 150 Mg Capsule) 300 mg PO Q8H [facility]; Protocol Last Admin: 03/04/25 19:09 Dose: Not Given Dexamethasone (Dexamethasone 4 Mg/Ml Inj) 4 mg IVP Q5M PRN PRN Reason: Nausea unrelieved by Reglan Stop: 03/04/25 15:14 Doxycycline Monohydrate (Doxycycline 100 Mg Tablet) 100 mg PO BID [facility]; Protocol Last Admin: 03/03/25 08:01 Dose: 100 mg Fentanyl (Fentanyl 50 Mcg/Ml Inj 2ml) 50 mcg IVP Q5M PRN PRN Reason: Pain level 6-10 PACU Phase I Stop: 03/04/25 15:14 Hydromorphone HCl (Hydromorphone 1 Mg/Ml Inj 1ml) 0.5 mg IVP Q10M PRN PRN Reason: Pain level 7-10 PACU Phase I Stop: 03/04/25 15:14 Last Admin: 03/03/25 16:04 Dose: 0.5 mg Hydromorphone HCl (Hydromorphone 1 Mg/Ml Inj 1ml) 0.25 mg IVP Q10M PRN PRN Reason: Pain level 4-6 PACU Phase I Stop: 03/04/25 15:14 Hydromorphone HCl (Hydromorphone 1 Mg/Ml Inj 1ml) Confirm Administered Dose 1 mg .ROUTE .STK-MED ONE Stop: 03/03/25 16:04 Last Admin: 03/03/25 17:03 Dose: Not Given Sodium Chloride (Sodium Chloride 0.9%) 500 mls @ 999 mls/hr IV .Q31M PRN PRN Reason: HYPOTENSION Clindamycin HCl/Dextrose (Cleocin) 900 mg in 50 mls @ 100 mls/hr IV Q8H [facility]; Protocol Last Admin: 03/03/25 15:45 Dose: 100 mls/hr Lidocaine HCl (Xylocaine) Confirm Administered Dose 10 mls @ as directed .ROUTE .STK-MED ONE Stop: 03/03/25 15:40 Last Admin: 03/03/25 17:03 Dose: Not Given Ferric Sodium Gluconate 125 mg (/ Sodium Chloride) 110 mls @ 110 mls/hr IV ONCE ONE Stop: 03/03/25 18:29 Last Infusion: 03/03/25 20:02 Dose: Infused Clindamycin HCl/Dextrose (Cleocin) 300 mg in 50 mls @ 100 mls/hr IV Q8H [facility]; Protocol Last Infusion: 03/05/25 11:28 Dose: Infused Lidocaine HCl (Lidocaine 1% 10 Ml Inj) 10 ml INJECTION ONCE ONE Stop: 03/01/25 16:37 Last Admin: 03/01/25 17:34 Dose: 10 ml Lidocaine HCl (Lidocaine 2% Inj 20 Ml) Confirm Administered Dose 20 ml .ROUTE .STK-MED ONE Stop: 03/03/25 15:25 Last Admin: 03/03/25 17:03 Dose: Not Given Meperidine HCl (Meperidine 50 Mg/Ml Inj) 12.5 mg IVP Q5M PRN PRN Reason: Shivering PACU Phase I Stop: 03/04/25 15:14 Metoclopramide HCl (Metoclopramide 5 Mg/Ml Sdv 2 Ml) 10 mg IVP Q5M PRN PRN Reason: Nausea unrelieved by Zofran Stop: 03/04/25 15:14 Morphine Sulfate (Morphine 4 Mg/Ml Sdv 1 Ml) 2 mg IVP Q5M PRN PRN Reason: Pain level 2-5 PACU Phase I Stop: 03/04/25 15:14 Morphine Sulfate (Morphine 4 Mg/Ml Sdv 1 Ml) 2 mg IVP Q2M PRN PRN Reason: Pain level 6-10 PACU Phase I Stop: 03/04/25 15:14 Morphine Sulfate (Morphine 4 Mg/Ml Sdv 1 Ml) 0 mg IVP Q5M PRN PRN Reason: Breakthrough Pain PACU PhaseII Olanzapine (Olanzapine 10 Mg Odt) 10 mg PO ONCE ONE Stop: 03/01/25 18:11 Last Admin: 03/01/25 18:51 Dose: 10 mg Ondansetron HCl (Ondansetron 2 Mg/Ml Sdv 2 Ml) 4 mg IVP Q5M PRN PRN Reason: Nausea PACU Phase I Stop: 03/04/25 15:14 Ondansetron HCl (Ondansetron 2 Mg/Ml Sdv 2 Ml) 4 mg IVP Q15M PRN PRN Reason: Nausea/Vomiting PACU PHASE II Quetiapine Fumarate (Quetiapine Xr (24hr) 50 Mg Tablet) 50 mg PO 1800 [facility] Last Admin: 03/04/25 17:34 Dose: 50 mg Silver Nitrate (Silver Nitrate Applicator) Confirm Administered Dose 1 each .ROUTE .[employer]-MED ONE Stop: 03/03/25 16:24 Last Admin: 03/03/25 17:04 Dose: Not Given Silver Nitrate (Silver Nitrate Applicator) Confirm Administered Dose 2 each .ROUTE .[employer]-MED ONE Stop: 03/03/25 16:27 Last Admin: 03/03/25 17:04 Dose: Not Given Allergies amoxicillin Allergy (Verified 11/27/24 09:58) ALGY-Anaphylaxis Sulfa (Sulfonamide Antibiotics) Allergy (Verified 11/27/24 09:58) ALGY-Anaphylaxis Home Medications buprenorphine 4 mg-naloxone 1 mg sublingual film (Suboxone) 1 film buccal BID 11/27/24 [History Confirmed 03/03/25] bupropion HCl 150 mg 24 hr tablet, extended release (Wellbutrin XL) 150 mg PO QAM #30 tabs 11/27/24 [Rx Confirmed 03/03/25] buspirone 10 mg tablet 10 mg PO .morning #30 tabs 11/27/24 [Rx Confirmed 03/03/25] lamotrigine 100 mg tablet (Lamictal) 100 mg PO .morning #14 tabs 11/27/24 [Rx Confirmed 03/03/25] lamotrigine 150 mg tablet (Lamictal) 150 mg PO .morning #30 tabs 11/27/24 [Rx Confirmed 03/03/25] Discharge Plan Discharge Patient Disposition: Home Condition: Stable Prescriptions: No Action lamotrigine [Lamictal] 100 mg tablet 100 mg PO .morning Qty: 14 0RF Rx Instructions: Take one tablet every morning x two weeks, then increase to 150 mg tablet every morning lamotrigine [Lamictal] 150 mg tablet 150 mg PO .morning Qty: 30 4RF Rx Instructions: Start one tablet every morning after completion of 100 mg tab x 2 weeks buspirone 10 mg tablet 10 mg PO .morning Qty: 30 4RF Rx Instructions: Take one tablet every morning bupropion HCl [Wellbutrin XL] 150 mg tablet extended release 24 hr 150 mg PO QAM Qty: 30 4RF Rx Instructions: Take one tablet every morning buprenorphine-naloxone [Suboxone] 4-1 mg film 1 film buccal BID Rx Instructions: place 1 strip/tab under (each) side of tongue Referrals: Art Weaver MD [Physician, [employer]] Patient Instructions: Acute Wound Care (DC), Opioid Safety, Post Anesthesia Care, Patient Portal & Jono Instructions Coding Level of Care Code Acute Code for [facility] Fwd Diagnoses Bipolar depression F31.9 Methamphetamine use disorder, severe, dependence F15.20 Chronic post-traumatic stress disorder F43.12 Suicidal ideation R45.851 Cyclothymic disorder F34.0
[2025-03-05] MEDS: quetiapine XR (24HR) 50 mg Tablet 100 MG PO (17:33)
--- NOTE | 2025-03-05 17:37 | P.PN_ITS ---
Subjective 2 Subjective: Brief transfer summary Neuropsych Unit : the patient was seen today and was doing well. No acute overnight events, no fever or any other questions or concerns relayed by the patient. History and Hospital course as per the retrospective notes and the patient: 39-year-old female with a history of bip olar 2 disorder admitted with severe depression and suicidal ideation in the context of continued use of methamphetamine and opiates. Internal medicine was consulted due to paronychia of the right middle finger with fluctuance and purulent discharge. The patient was admitted under medicine, managed by the surgery by incision and drainage. During her stay in the internal medicine care no complications were encountered. She was kept on clindamycin IV and switch to oral clindamycin as per the General Surgery recommendations. General surgery further recommended to continue total 14 days of oral antibiotics and to follow-up with Dr. SCHUYLER MANN as outpatient. The patient transferred to psych after stabilization established and discussed with the psych attending Dr Gonzalez. The patient was informed about the plan of care and agreed without any language barrier. And to continue rest of the psychiatric acute conditions management as per the primary team plan Vitals/I&O/Wt Last Vital Signs Temp 98.5 F 03/05/25 16:00 Pulse 74 03/05/25 16:00 Resp 16 03/05/25 16:00 BP 110/74 03/05/25 16:00 Pulse Ox 98 03/05/25 16:00 O2 Del Method Room Air 03/05/25 16:00 03/05/25 03/05/25 03/05/25 06:59 14:59 22:59 Intake Total 50 / 1590 1130 / 1130 Balance 50 / 1590 1130 / 1130 Physical Exam 2 Narrative: General: Alert oriented x3, patient seen lying comfortably without any concerns or distress HEENT: Normocephalic, atraumatic, EOMI, breathing pattern normal saturation on room air Cardio: Regular rate rhythm, normal S1-S2, no murmurs rubs gallops, Respiratory: Good bilateral air entry, no wheezes no rhonchi appreciated GI: Abdomen soft, nontender, nondistended, normoactive bowel sounds present all 4 quadrants, Neuro: Cranial nerves II to XII intact, strength 5/5, sensation 5/5, no gross neurological deficit Behavior: Appropriate and cooperative Skin/extremities pulses 2+, right middle finger covered with dressing no pain or limitation of the movement of the finger or the hand Data 03/05/25 08:42 03/05/25 08:42 Micro: Microbiology 03/03/25 16:15 Gram Stain - Final Finger - #1 Abscess Culture - Preliminary Coag positive Staphylococcus A&P Assessment and plan 1. Felon of finger of right hand: switch to oral clindamycin as per the General Surgery recommendations. General surgery further recommended to continue total 14 days of oral antibiotics and to follow-up with Dr. SCHUYLER MANN as outpatient. 2. Bipolar depression: Continue with primary team management 3. Suicidal ideation: Continue with primary team management 4. Depression: Continue with primary team management 5. Microcytic anemia: Iron deficiency anemia Continue to replace iron and monitor hemoglobin 6. Marijuana dependence: Continue with primary team management 7. Methamphetamine use disorder, severe, dependence: Continue with primary team management 8. Dental infection: Continue to monitor any fever, painful jaw movements or signs of dental infection 9. Chronic post-traumatic stress disorder: Continue with primary team management 10. Nicotine dependence, cigarettes, uncomplicated: Continue with primary team management 11. Cyclothymic disorder: Continue with primary team management Plan: Continue with primary team management PDMP PDMP Reviewed: Not Reviewed Attestations 2 Medical Necessity Statement*: Patient will require to stay in the hospital for further management of her acute current medical illnesses Time Spent in Patient Care: Greater than 35 minutes Plan of care was discussed in length with the patient, involving the general surgery team and the psychiatry team for further management of paronychia of the finger and follow-up plan Coding Level of Care Code 12249 Diagnoses Felon of finger of right hand L03.011 Bipolar depression F31.9 Suicidal ideation R45.851 Depression F32.A Microcytic anemia D50.9 Marijuana dependence F12.20 Methamphetamine use disorder, severe, dependence F15.20 Dental infection K04.7 Chronic post-traumatic stress disorder F43.12 Nicotine dependence, cigarettes, uncomplicated F17.210 Cyclothymic disorder F34.0
[2025-03-05 19:09] VITALS: BP 125/68; PULSE 79; RESP 18; TEMP 36.9; O2SAT 99
[2025-03-05 22:00] VITALS: BP 125/68; PULSE 79; RESP 18; TEMP 36.9; O2SAT 99
[2025-03-06 06:00] VITALS: BP 107/64; PULSE 76; RESP 18; TEMP 36.8; O2SAT 97
--- NOTE | 2025-03-06 09:04 | PC.NURSE ---
Contacted Dr. Gonzalez by phone to report pt's critical lab - MRSA.
[2025-03-06] MEDS: ferrous sulfate EC 325 mg Tablet PO ×3 (09:08→17:29)
[2025-03-06] MEDS: HYDROcodone-acetaminophen 5-325 mg Tablet 1 TAB PO ×2 (09:08→17:10)
[2025-03-06 14:00] VITALS: BP 119/78; PULSE 85; RESP 18; TEMP 36.8; O2SAT 99
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
[2025-03-06] MEDS: quetiapine XR (24HR) 50 mg Tablet 100 MG PO (17:11)
[2025-03-06 19:07] VITALS: BP 131/74; PULSE 80; RESP 16; TEMP 37.1; O2SAT 98
[2025-03-07 06:00] VITALS: BP 111/64; PULSE 67; RESP 18; TEMP 37.2; O2SAT 98
[2025-03-07] MEDS: HYDROcodone-acetaminophen 5-325 mg Tablet 1 TAB PO (08:31)
[2025-03-07] MEDS: ferrous sulfate EC 325 mg Tablet PO ×2 (08:33→11:32)
[2025-03-07 14:00] VITALS: BP 122/72; PULSE 82; RESP 18; TEMP 36.8; O2SAT 100
[2025-03-07 14:50] VITALS: BP 122/72; PULSE 82; RESP 17; TEMP 36.8; O2SAT 100
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
== END 2025-03-07 15:26 | disposition home or self-care (01) | DRG 885 ==
LOC: ER 21:20 → NP 21:52 → MEDSURG 03-03 15:10 → NP 03-05 14:38
PROVIDERS: Internal Medicine; Surgery; Admitting Provider Psychiatry & Neurology Psychiatry; Emergency Provider Student in an Organized Health Care Education/Training Program; Visit Provider Psychiatry & Neurology Psychiatry
DX: F32.2 Major depressive disorder, single episode, severe without psychotic features (principal); R45.851 Suicidal ideations; F15.20 Other stimulant dependence, uncomplicated; L02.511 Cutaneous abscess of right hand; F11.20 Opioid dependence, uncomplicated; D50.9 Iron deficiency anemia, unspecified; F34.0 Cyclothymic disorder; F43.12 Post-traumatic stress disorder, chronic; L03.011 Cellulitis of right finger; K04.7 Periapical abscess without sinus; Z22.322 Carrier or suspected carrier of Methicillin resistant Staphylococcus aureus; Z88.2 Allergy status to sulfonamides; Z88.1 Allergy status to other antibiotic agents; F17.210 Nicotine dependence, cigarettes, uncomplicated; Z62.810 Personal history of physical and sexual abuse in childhood; Z62.811 Personal history of psychological abuse in childhood
CPT/HCPCS: 36415; 73130; 80048; 80053; 80306; 80307; 81001; 82728; 83540; 83550; 84466; 84703; 85014; 85025; 85045; 87070; 87075; 87077; 87186; 87205; 97150; 97165; 99285; J1171; J2916; J3490; J9999